=== PATIENT | male | born 1960 | race American Indian/Alaskan Native ===

== ENCOUNTER 2017-03-24 10:19 | Emergency (ER) | payer MEDICAID ==
[2017-03-24 10:19] VITALS: BMI 25.8
[2017-03-24 10:37] VITALS: BP 145/79; PULSE 84; RESP 18; TEMP 97; O2SAT 98
--- NOTE | 2017-03-24 11:00 | ED PDOC ---
HPI: General Adult Time Seen by Provider: 03/24/17 10:33 Chief Complaint (Nursing): Med Refill Chief Complaint (Provider): medication refill History Per: Patient (56 y/o male h/o Schizophrenia here with for medication refill. Patient notes increased auditory/visual hallucination yesteday preventing sleep. Patient states he has been out of medication x 2 days. Denies any SI/HI.) Past Medical History Reviewed: Historical Data, Nursing Documentation, Vital Signs Vital Signs: Last Vital Signs Temp 97 F L 03/24/17 10:34 Pulse 84 03/24/17 10:34 Resp 18 03/24/17 10:34 BP 145/79 03/24/17 10:34 Pulse Ox 98 03/24/17 11:00 - Medical History PMH: Arthritis (back surgery for arthritis), Back Problems, Schizophrenia Denies: Chronic Kidney Disease - Surgical History Surgical History: Back Surgery - Family History Family History: States: Unknown Family Hx - Immunization History Hx Tetanus Toxoid Vaccination: No Hx Influenza Vaccination: No Hx Pneumococcal Vaccination: No - Home Medications Home Medications: Ambulatory Orders Medication Instructions Recorded Tramadol Hydrochloride [Tramadol] 50 mg PO TID PRN 02/24/15 Oxycodone HCl/Acetaminophen 1 tab PO Q6 PRN #10 tab 04/24/15 [Percocet 325 mg-5 mg] oxyCODONE/Acetaminophen [Percocet 1 ea PO Q6 PRN #15 tab 04/27/15 5/325 mg Tab] oxyCODONE/Acetaminophen [Percocet 1 ea PO BID PRN #8 tab 05/03/15 5/325 mg Tab] Mupirocin 2% Ointment [Bactroban 22 applic EXT BID 14 Days 05/16/15 Ointment] Aripiprazole [Abilify] 15 mg PO DAILY #7 tab 10/30/15 DiphenhydrAMINE [Benadryl] 25 - 50 mg PO HS PRN #30 cap 10/30/15 Quetiapine Fumarate [Seroquel] 400 mg PO DAILY #7 tab 10/30/15 Quetiapine Fumarate [Seroquel] 400 mg PO DAILY #14 tablet 03/24/17 - Allergies Allergies/Adverse Reactions: Allergies Allergy/AdvReac Type Severity Reaction Status Date / Time No Known Allergies Allergy Verified 05/27/15 10:16 Review of Systems ROS Statement: Except As Marked, All Systems Reviewed And Found Negative Physical Exam - Reviewed Nursing Documentation Reviewed: Yes Vital Signs Reviewed: Yes - Physical Exam Appears: Positive for: Well, Non-toxic, No Acute Distress Head Exam: Positive for: ATRAUMATIC, NORMAL INSPECTION, NORMOCEPHALIC Skin: Positive for: Normal Color, Warm, DRY Eye Exam: Positive for: EOMI, Normal appearance, PERRL ENT: Positive for: Normal ENT Inspection Neck: Positive for: Normal, Painless ROM Cardiovascular/Chest: Positive for: Regular Rate, Rhythm Respiratory: Positive for: CNT, Normal Breath Sounds Gastrointestinal/Abdominal: Positive for: Normal Exam, Bowel Sounds, Soft Back: Positive for: Normal Inspection Extremity: Positive for: Normal ROM Neurologic/Psych: Positive for: Alert, Oriented - ECG O2 Sat by Pulse Oximetry: 98 - Progress ED Course And Treament: Seen by Crisis. Cleared for d/c home by Dr. Reyes. Diagnosis Schizophrenia Disposition - Clinical Impression Clinical Impression: Schizophrenia - Patient ED Disposition Is Patient to be Admitted: No - Disposition Disposition Time: 13:13 Condition: FAIR Prescriptions: Quetiapine Fumarate [Seroquel] 400 mg PO DAILY #14 tablet Instructions: Schizophrenia (ED)
== END 2017-03-24 13:45 | disposition home or self-care (01) ==
LOC: H.ER 10:19
DX: Z76.0 Encounter for issue of repeat prescription (principal); F20.9 Schizophrenia, unspecified

== ENCOUNTER 2017-04-11 12:11 | Emergency (ER) | payer MEDICAID ==
[2017-04-11 12:11] VITALS: BMI 25.8
[2017-04-11 12:19] VITALS: BP 168/84; PULSE 96; RESP 21; TEMP 97; O2SAT 99
--- NOTE | 2017-04-11 12:39 | ED PDOC ---
HPI: General Adult Time Seen by Provider: 04/11/17 12:37 Chief Complaint (Nursing): Med Refill Chief Complaint (Provider): med refill History Per: Patient History/Exam Limitations: no limitations Additional Complaint(s): 57yo M in ED for refill of seroqule 400mg states he ran out 304 days ago and without c/o hallucinations depression SI. states his pyschriast is on vacation and appt was made for the of this month. Past Medical History Reviewed: Historical Data, Nursing Documentation, Vital Signs Vital Signs: Last Vital Signs Temp 97.0 F L 04/11/17 12:17 Pulse 96 H 04/11/17 12:17 Resp 21 04/11/17 12:17 BP 168/84 H 04/11/17 12:17 Pulse Ox 99 04/11/17 12:17 - Medical History PMH: Arthritis (back surgery for arthritis), Back Problems, Schizophrenia Denies: Diabetes, Hepatitis, HIV, HTN, Chronic Kidney Disease, Seizures, Sexually Transmitted Disease - Surgical History Surgical History: Back Surgery - Family History Family History: States: Unknown Family Hx - Immunization History Hx Tetanus Toxoid Vaccination: No Hx Influenza Vaccination: No Hx Pneumococcal Vaccination: No - Home Medications Home Medications: Ambulatory Orders Medication Instructions Recorded Quetiapine Fumarate [Seroquel] 1 tab PO HS 04/11/17 Quetiapine Fumarate [Seroquel] 400 mg PO HS #7 tablet 04/11/17 - Allergies Allergies/Adverse Reactions: Allergies Allergy/AdvReac Type Severity Reaction Status Date / Time No Known Allergies Allergy Verified 04/26/15 10:16 Review of Systems ROS Statement: Except As Marked, All Systems Reviewed And Found Negative Psych: Negative for: Psychosis, Suicidal ideation Physical Exam - Reviewed Nursing Documentation Reviewed: Yes Vital Signs Reviewed: Yes - Physical Exam Appears: Positive for: Well, Non-toxic, No Acute Distress Head Exam: Positive for: ATRAUMATIC, NORMAL INSPECTION, NORMOCEPHALIC Eye Exam: Positive for: EOMI, Normal appearance, PERRL Cardiovascular/Chest: Positive for: Regular Rate, Rhythm Respiratory: Positive for: CNT, Normal Breath Sounds Neurologic/Psych: Positive for: Alert, Oriented, Mood/Affect (stable affect) - ECG O2 Sat by Pulse Oximetry: 99 Medical Decision Making Medical Decision Making: pt will be Rx seroqeul for 14 days until able to see psychiatristpt stale until the 17 of this month. pt stable for d/c and at this time does not require crisis eval. pt given [facility] outpt information if in the future requires Rx refill for mental health medication. Disposition - Clinical Impression Clinical Impression: Prescription refill - Patient ED Disposition Is Patient to be Admitted: No Counseled Patient/Family Regarding: Need For Followup, Rx Given - Disposition Disposition: Routine/Home Disposition Time: 12:41 Condition: STABLE Prescriptions: Quetiapine Fumarate [Seroquel] 400 mg PO HS #7 tablet Instructions: Schizophrenia (ED)
== END 2017-04-11 13:00 | disposition home or self-care (01) ==
LOC: H.ER 12:11
DX: Z76.0 Encounter for issue of repeat prescription (principal); F20.9 Schizophrenia, unspecified

== ENCOUNTER 2017-08-26 08:55 | Observation (INO) | payer MEDICAID ==
[2017-08-26 08:59] VITALS: BP 158/83; PULSE 84; RESP 20; TEMP 97.9; O2SAT 98
[2017-08-26 09:00] VITALS: BMI 27.4
[2017-08-26] MEDS ORDERED: Sodium Chloride 0.9% 1,000 ML IV STA ×2 (09:50→11:10)
--- NOTE | 2017-08-26 10:25 | ED PDOC ---
Hyperglycemia/Hypoglycemia Time Seen by Provider: 08/26/17 09:21 Chief Complaint (Nursing): Dizziness/Lightheaded Chief Complaint (Provider): Hyperglycemia History Per: Patient History/Exam Limitations: no limitations Onset/Duration Of Symptoms: Unknown : The patient does not have any of the infectious symptoms listed except for those marked. Additional Complaint(s): Hayden is a 57 y/o male who was brought to the ED for hyperglycemia during his evaluation for schizophrenia which started yesterday. While being evaluated for schizophrenia it was found that his glucose was 326. He denies any medical complaints, including chest pain, dizziness, shortness of breath, polydipsia, or polyuria. PMD: None Provided Past Medical History Reviewed: Historical Data, Nursing Documentation, Vital Signs Vital Signs: Last Vital Signs Temp 97.9 F 08/26/17 08:59 Pulse 84 08/26/17 08:59 Resp 20 08/26/17 08:59 BP 158/83 H 08/26/17 08:59 Pulse Ox 98 08/26/17 09:05 - Medical History PMH: Arthritis (back surgery for arthritis), Back Problems, Schizophrenia Denies: Diabetes, Hepatitis, HIV, HTN, Chronic Kidney Disease, Seizures, Sexually Transmitted Disease - Surgical History Surgical History: Back Surgery - Family History Family History: States: Unknown Family Hx, Diabetes - Social History Alcohol: Social - Immunization History Hx Tetanus Toxoid Vaccination: No Hx Influenza Vaccination: No Hx Pneumococcal Vaccination: No - Home Medications Home Medications: Ambulatory Orders Medication Instructions Recorded Quetiapine Fumarate [Seroquel] 1 tab PO HS 04/11/17 Quetiapine Fumarate [Seroquel] 400 mg PO HS #7 tablet 04/11/17 - Allergies Allergies/Adverse Reactions: Allergies Allergy/AdvReac Type Severity Reaction Status Date / Time No Known Allergies Allergy Verified 04/26/15 10:16 Review of Systems ROS Statement: Except As Marked, All Systems Reviewed And Found Negative Constitutional: Negative for: Other (polydipsia) Cardiovascular: Negative for: Chest Pain Respiratory: Negative for: Shortness of Breath Genitourinary Male: Negative for: Frequency Neurological: Negative for: Dizziness Physical Exam - Reviewed Nursing Documentation Reviewed: Yes Vital Signs Reviewed: Yes - Physical Exam Appears: Positive for: Well, Non-toxic, No Acute Distress Head Exam: Positive for: ATRAUMATIC, NORMAL INSPECTION, NORMOCEPHALIC Skin: Positive for: Normal Color, Warm, DRY Eye Exam: Positive for: EOMI, Normal appearance, PERRL ENT: Positive for: Normal ENT Inspection Neck: Positive for: Normal, Painless ROM, Supple Cardiovascular/Chest: Positive for: Regular Rate, Rhythm Respiratory: Positive for: CNT, Normal Breath Sounds Gastrointestinal/Abdominal: Positive for: Normal Exam, Bowel Sounds, Soft. Negative for: Tenderness Back: Positive for: Normal Inspection Extremity: Positive for: Normal ROM Neurologic/Psych: Positive for: Alert, Oriented - Laboratory Results Result Diagrams: 08/26/17 10:27 - ECG O2 Sat by Pulse Oximetry: 98 (RA) Pulse Ox Interpretation: Normal Medical Decision Making Medical Decision Making: Initial Impression: hyperglycemia Initial Plan --VBG Shock Panel --EKG --CMP --Troponin I --Urine dipstick --CBC --Normal IV --Blood Glucose --Urinalysis --reevaluation Scribe Attestation: Documented by Derrick Hamm, acting as a scribe for Dulce Maria Rouse. Provider Scribe Attestation: All medical record entries made by the Scribe were at my direction and personally dictated by me. I have reviewed the chart and agree that the record accurately reflects my personal performance of the history, physical exam, medical decision making, and the department course for this patient. I have also personally directed, reviewed, and agree with the discharge instructions and disposition. Disposition - Disposition Forms: [employer] (Bengali)
[2017-08-26 10:27] LABS: RBC URINE 3 /hpf (0-3); URINE BILIRUBIN NEGATIVE (NEGATIVE); URINE BLOOD NEGATIVE (NEGATIVE); URINE COLOR YELLOW (YELLOW); URINE GLUCOSE (UA) >=500 mg/dL (Normal); URINE KETONE NEGATIVE (NEGATIVE); URINE LEUKOCYTE ESTERASE NEG Leu/uL (Negative); URINE PROTEIN NEGATIVE (NEGATIVE); URINE UROBILINOGEN 0.2-1.0 mg/dL (0.2-1.0); WBC URINE < 1 /hpf (0-5)
[2017-08-26 10:33] LABS: BASO # 0.1 K/uL (0.0-0.2); BASO % 1.6 % (0.0-2.0); EOS # 0.1 K/uL (0.0-0.7); EOS % 1.3 % (0.0-4.0); HEMATOCRIT 38.5 % (35.0-51.0); LYMPH % 41.2 % (20.0-40.0); MEAN CELL VOLUME 82.1 fl (80.0-94.0); MEAN CORPUSCULAR HGB CONC 32.9 g/dL (33.0-37.0); MEAN PLATELET VOLUME 8.8 fl (7.2-11.7); MONO # 0.3 K/uL (0.0-0.8); MONO % 6.8 % (0.0-10.0); NEUT # 2.4 K/uL (1.8-7.0); NEUT % 49.1 % (50.0-75.0); NRBC % 0.2 % (0.0-0.0); RED CELL DISTRIBUTION WIDTH 13.7 % (11.5-14.5); WHITE BLOOD COUNT 4.9 K/uL (4.8-10.8)
[2017-08-26 10:39] LABS: VENOUS BLOOD GAS BASE EXCESS 1.3 mmol/L (0.0-2.0); VENOUS BLOOD GAS PCO2 47 mmHg (40-60); VENOUS BLOOD PH 7.37 (7.32-7.43)
[2017-08-26 10:45] LABS: ALB/GLOB RATIO 1.3 (1.0-2.1); ALKALINE PHOSPHATASE 124 U/L (38-126); ALT/SGPT 34 U/L (21-72); AST/SGOT 39 U/L (17-59); BILIRUBIN,TOTAL 0.6 mg/dl (0.2-1.3); BLOOD UREA NITROGEN 9 mg/dl (9-20); CALCIUM 9.5 mg/dL (8.4-10.2); CARBON DIOXIDE 22 mmol/L (22-30); CHLORIDE 102 mmol/L (98-107); GFR AFRICAN-AMERICAN > 60; GLUCOSE,RANDOM 330 mg/dL (75-110); SODIUM 139 mmol/l (132-148); TOTAL PROTEIN 7.6 G/DL (6.3-8.2)
[2017-08-26 11:08] LABS: POTASSIUM 4.6 MMOL/L (3.6-5.0)
--- NOTE | 2017-08-27 10:55 | CARD ---
APPROVED REPORT EKG Measurement Heart [id number] <Conclusion> Normal sinus rhythm Normal ECG
== END 2017-08-26 14:08 | disposition home or self-care (01) ==
LOC: H.ER 08:55 → H.EROBSV 10:00
PROVIDERS: ADMIT Emergency Medicine; ATTEND Emergency Medicine
DX: R73.9 Hyperglycemia, unspecified (principal); F20.9 Schizophrenia, unspecified; M19.90 Unspecified osteoarthritis, unspecified site; Z79.899 Other long term (current) drug therapy
CPT/HCPCS: 80053; 81003; 82803; 82948; 84484; 85025; 93005; 99283; G0378; J7040

== ENCOUNTER 2018-02-25 10:06 | Observation (INO) | payer MEDICAID ==
[2018-02-25 10:07] VITALS: BMI 27.4
[2018-02-25] MEDS ORDERED: Sodium Chloride 0.9% 1,000 ML IV STA (10:43)
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
[2018-02-25 11:11] LABS: BASO # 0.1 K/uL (0.0-0.2); BASO % 1.2 % (0.0-2.0); EOS # 0.1 K/uL (0.0-0.7); EOS % 1.3 % (0.0-4.0); HEMOGLOBIN 14.6 g/dL (12.0-18.0); LYMPH % 36.5 % (20.0-40.0); MEAN CELL VOLUME 82.7 fl (80.0-94.0); MEAN CORPUSCULAR HEMOGLOBIN 27.4 pg (27.0-31.0); MEAN CORPUSCULAR HGB CONC 33.2 g/dL (33.0-37.0); MEAN PLATELET VOLUME 8.6 fl (7.2-11.7); MONO # 0.8 K/uL (0.0-0.8); MONO % 10.2 % (0.0-10.0); NEUT # 4.2 K/uL (1.8-7.0); NEUT % 50.8 % (50.0-75.0); NRBC % 0.1 % (0.0-0.0); RBC 5.34 Mil/uL (4.40-5.90); RED CELL DISTRIBUTION WIDTH 15.7 % (11.5-14.5); WHITE BLOOD COUNT 8.2 K/uL (4.8-10.8)
[2018-02-25 11:18] LABS: VENOUS BLOOD GAS BASE EXCESS 0.3 mmol/L (0.0-2.0); VENOUS BLOOD GAS PCO2 38 mmHg (40-60); VENOUS BLOOD GAS PO2 47 mm/Hg (30-55); VENOUS BLOOD PH 7.42 (7.32-7.43)
[2018-02-25 11:23] LABS: URINE BILIRUBIN NEGATIVE (NEGATIVE); URINE BLOOD SMALL (NEGATIVE); URINE CLARITY SLIGHTY-CLOUDY (Clear); URINE COLOR YELLOW (YELLOW); URINE GLUCOSE (UA) NEG (Normal); URINE LEUKOCYTE ESTERASE NEG Leu/uL (Negative); URINE PROTEIN 100 mg/dL (NEGATIVE); URINE UROBILINOGEN 0.2-1.0 mg/dL (0.2-1.0)
[2018-02-25 11:24] LABS: BLOOD UREA NITROGEN 20 mg/dl (9-20); GFR AFRICAN-AMERICAN > 60; GFR NON-AFRICAN AMERICAN 52
[2018-02-25 11:25] LABS: ALBUMIN 4.5 g/dL (3.5-5.0); ALT/SGPT 35 U/L (21-72); AST/SGOT 27 U/L (17-59); CALCIUM 9.9 mg/dL (8.4-10.2); LIPASE 78 U/L (23-300)
--- NOTE | 2018-02-25 11:43 | RAD ---
PROCEDURE: CHEST RADIOGRAPH, 1 VIEW HISTORY: vomiting COMPARISON: 02/23/2012 FINDINGS: LUNGS: Clear. PLEURA: No pneumothorax or pleural fluid seen. CARDIOVASCULAR: Normal. OSSEOUS STRUCTURES: No significant abnormalities. VISUALIZED UPPER ABDOMEN: Normal. OTHER FINDINGS: None. IMPRESSION: No active disease.
--- NOTE | 2018-02-25 13:47 | CP.PCM.HP ---
History of Present Illness - History of Present Illness History of Present Illness: 57M with PMHx of IDDM Type 2, schizophrenia seen in ED for admission after three days of bloody emesis. Patient states that he experienced three days of bloody vomit after eating fried chicken. He states that the vomiting stopped yesterday but says that he still has stomach pain at this time. He says he has only been able to eat small amounts of chicken since the onset of his nausea and vomiting. Patient also states that he has not had a bowel movement since his vomiting began and denies any hematouria. Patient also states that he has been taking Metformin at his house but has not picked up the new prescription that was E-prescribed to him two weeks ago from the [facility]. Patient denies any further complaints at this time. Denies any recent F/C/CP/SOB /D/posterior calf pain. PMD: Dr. Garcia ([facility]) PMH: DM2, schizophrenia Meds: Metformin, Xanax, Lopid, Quetiapine ALL: NKDA PSHx: Lumbar nerve block, Ex lap FHx: Non-contributory SHx: Intermittent EtOH, cocaine use (last use three days ago), current smoker Present on Admission - Present on Admission Any Indicators Present on Admission: No Review of Systems - Review of Systems Review of Systems: ROS as per HPI - Constitutional Constitutional: As Per HPI. absent: Anorexia, Chills, Daytime Sleepiness, Excessive Sweating, Fatigue, Fever, Frequent Falls, Headache, Increased Appetite , Lethargy, Malaise, Night Sweats, Snoring, Sleep Apnea, Weight Gain, Weight Loss, Weakness, Other - Cardiovascular Cardiovascular: As Per HPI. absent: Acrocyanosis, Chest Pain, Chest Pain at Rest, Chest Pain with Activity, Claudication, Diaphoresis, Dyspnea, Dyspnea on Exertion, Edema, Irregular Heart Rhythm, Pain Radiating to Arm/Neck/Jaw, Leg Edema, Leg Ulcers, Lightheadedness, Orthopnea, Palpitations, Paroxysmal Nocturnal Dyspnea, Pedal Edema, Radiating Pain, Rapid Heart Rate, Slow Heart Rate, Syncope, Other - Respiratory Respiratory: As Per HPI. absent: Cough, Dyspnea, Hemoptysis, Dyspnea on Exertion, Wheezing, Snoring, Stridor, Pain on Inspiration, Chest Congestion, Excessive Mucous Production, Change in Mucous Color, Pain with Coughing, Other - Gastrointestinal Gastrointestinal: Abdominal Pain, Constipation, Hematemesis, Nausea, Vomiting Past Patient History - Infectious Disease Hx of Infectious Diseases: None - Past Medical History & Family History Past Medical History?: No - Past Social History Smoking Status: Current Some Days Smoker - CARDIAC Hx Hypertension: No - PULMONARY Hx Tuberculosis: No - NEUROLOGICAL Hx Seizures: No - HEENT Hx HEENT Problems: No - RENAL Hx Chronic Kidney Disease: No - ENDOCRINE/METABOLIC Hx Endocrine Disorders: No - HEMATOLOGICAL/ONCOLOGICAL Hx Human Immunodeficiency Virus (HIV): No - INTEGUMENTARY Hx Dermatological Problems: No - MUSCULOSKELETAL/RHEUMATOLOGICAL Hx Arthritis: Yes (back surgery for arthritis) - GASTROINTESTINAL Hx Gastrointestinal Disorders: No - GENITOURINARY/GYNECOLOGICAL Hx Sexually Transmitted Disorders: No - PSYCHIATRIC Hx Schizophrenia: Yes - SURGICAL HISTORY Hx Surgeries: Yes (abdominal) Other/Comment: INTESTINAL SURGERY, back surgery for arthritis - ANESTHESIA Hx Anesthesia: Yes Hx Anesthesia Reactions: No Hx Malignant Hyperthermia: No Meds Allergies/Adverse Reactions: Allergies Allergy/AdvReac Type Severity Reaction Status Date / Time No Known Allergies Allergy Verified 04/26/15 10:16 Physical Exam - Constitutional Appears: Well, Non-toxic, No Acute Distress - Head Exam Head Exam: ATRAUMATIC, NORMOCEPHALIC - Eye Exam Eye Exam: EOMI, Normal appearance, PERRL Pupil Exam: PERRL - ENT Exam ENT Exam: Mucous Membranes Moist - Respiratory Exam Respiratory Exam: Clear to Auscultation Bilateral, NORMAL BREATHING PATTERN - Cardiovascular Exam Cardiovascular Exam: REGULAR RHYTHM - GI/Abdominal Exam GI & Abdominal Exam: Guarding. absent: Distended, Firm - Rectal Exam Rectal Exam: Deferred - Extremities Exam Extremities exam: Positive for: normal inspection - Neurological Exam Neurological exam: Alert, Oriented x3 - Psychiatric Exam Psychiatric exam: Normal Affect, Normal Mood - Skin Skin Exam: Intact, Normal Color, Warm Results - Vital Signs Recent Vital Signs: Last Vital Signs Temp 97 F L 02/25/18 13:22 Pulse 76 02/25/18 13:22 Resp 19 02/25/18 13:22 BP 160/80 H 02/25/18 13:22 Pulse Ox 98 02/25/18 13:22 - Labs Result Diagrams: 02/25/18 11:00 02/25/18 11:00 Labs: Laboratory Results - last 24 hr 02/25/18 02/25/18 02/25/18 10:31 11:00 11:00 WBC 8.2 D RBC 5.34 Hgb 14.6 Hct 44.1 MCV 82.7 MCH 27.4 MCHC 33.2 RDW 15.7 H Plt Count 334 MPV 8.6 Neut % (Auto) 50.8 Lymph % (Auto) 36.5 [place] % (Auto) 10.2 H Eos % (Auto) 1.3 Baso % (Auto) 1.2 Neut # (Auto) 4.2 Lymph # (Auto) 3.0 [place] # (Auto) 0.8 Eos # (Auto) 0.1 Baso # (Auto) 0.1 pO2 VBG pH VBG pCO2 VBG HCO3 VBG Total CO2 VBG O2 Sat (Calc) VBG Base Excess VBG Potassium Glucose Lactate FiO2 Sodium 139 Potassium 4.1 Chloride 100 Carbon Dioxide 22 Anion Gap 21 H BUN 20 Creatinine 1.4 Est GFR ( Amer) > 60 Est GFR (Non-Af Amer) 52 POC Glucose (mg/dL) 129 H Random Glucose 132 H Calcium 9.9 Magnesium 2.0 Total Bilirubin 0.8 AST 27 ALT 35 Alkaline Phosphatase 104 Troponin I < 0.0120 Total Protein 8.7 H Albumin 4.5 Globulin 4.3 H Albumin/Globulin Ratio 1.0 Lipase 78 Venous Blood Potassium Urine Color Urine Clarity Urine pH Ur Specific [place] Urine Protein Urine Glucose (UA) Urine Ketones Urine Blood Urine Nitrate Urine Bilirubin Urine Urobilinogen Ur Leukocyte Esterase Urine RBC (Auto) Urine Microscopic WBC Hyaline Casts 02/25/18 02/25/18 11:00 11:02 WBC RBC Hgb Hct MCV MCH MCHC RDW Plt Count MPV Neut % (Auto) Lymph % (Auto) [place] % (Auto) Eos % (Auto) Baso % (Auto) Neut # (Auto) Lymph # (Auto) [place] # (Auto) Eos # (Auto) Baso # (Auto) pO2 47 VBG pH 7.42 VBG pCO2 38 L VBG HCO3 24.8 VBG Total CO2 25.8 VBG O2 Sat (Calc) 86.7 H VBG Base Excess 0.3 VBG Potassium 4.3 Glucose 137 H Lactate 1.4 FiO2 21.0 Sodium 135.0 Potassium Chloride 100.0 Carbon Dioxide Anion Gap BUN Creatinine Est GFR ( Amer) Est GFR (Non-Af Amer) POC Glucose (mg/dL) Random Glucose Calcium Magnesium Total Bilirubin AST ALT Alkaline Phosphatase Troponin I Total Protein Albumin Globulin Albumin/Globulin Ratio Lipase Venous Blood Potassium 4.3 Urine Color Yellow Urine Clarity Slighty-cloudy Urine pH 5.0 Ur Specific [place] 1.026 Urine Protein 100 Urine Glucose (UA) Neg Urine Ketones Trace Urine Blood Small Urine Nitrate Negative Urine Bilirubin Negative Urine Urobilinogen 0.2-1.0 Ur Leukocyte Esterase Neg Urine RBC (Auto) 6 H Urine Microscopic WBC 2 Hyaline Casts 3-5 H Assessment & Plan - Assessment and Plan (Free Text) Assessment: 57M with PMHx of DM2, schizophrenia seen in ED for admission after three days of bloody emesis Plan: Hematemesis, resolved - H/H 14.6/44.1. No evidence of anemia - F/u repeat CBC to assess H/H and treat accordingly - Protonix for epigastric pain - Zofran for nausea/vomiting - CXR: No active disease - IVF NS 1000 mL @ 100 mL/hr IDDM Type 2 - POC Glucose 129 - Insulin coverage - Hold Metformin, hold glipizide - F/u HgA1c - F/u Lipid panel - Hypoglycemic protocol Schizophrenia - Continue at home medications Elevated BP w/o diagnosis for HTN - Asymptomatic - BP 160/80 - HCTZ 25 mg PO daily - Monitor vital signs q4 Non-specific EKG changes in ED - Serial trops - F/u EKG in AM Diet - Consistent Carbohydrate DVT Prophylaxis - SCDs - Date & Time Date: 02/25/18 Time: 13:25
[2018-02-25] MEDS ORDERED: Glucagon Recombinant 1 mg Inj IM PRN (14:00)
[2018-02-25] MEDS ORDERED: Dextrose 50% SYRINGE Inj (50 ml) IV PRN (14:00)
[2018-02-25] MEDS: Sodium Chloride 0.9% 1,000 ML IV SCH (14:17)
[2018-02-25] MEDS: Insulin Regular 100 units/ml SC SCH ×2 (16:31→21:49)
[2018-02-26] MEDS: Sodium Chloride 0.9% 1,000 ML IV SCH (00:55)
[2018-02-26 05:46] LABS: LDL CHOLESTEROL 157 mg/dL (0-129)
[2018-02-26 05:53] LABS: ALB/GLOB RATIO 1.1 (1.0-2.1); ALBUMIN 4.1 g/dL (3.5-5.0); ALT/SGPT 29 U/L (21-72); AST/SGOT 23 U/L (17-59); BLOOD UREA NITROGEN 13 mg/dl (9-20); CALCIUM 9.8 mg/dL (8.4-10.2); GFR AFRICAN-AMERICAN > 60; GFR NON-AFRICAN AMERICAN > 60; HDL CHOLESTEROL 36 MG/DL (30-70)
[2018-02-26 06:11] LABS: BASO % 0.5 % (0.0-2.0); EOS # 0.2 K/uL (0.0-0.7); EOS % 2.1 % (0.0-4.0); HEMOGLOBIN 13.9 g/dL (12.0-18.0); LYMPH # 3.6 K/uL (1.0-4.3); LYMPH % 47.6 % (20.0-40.0); MEAN CELL VOLUME 83.2 fl (80.0-94.0); MEAN CORPUSCULAR HEMOGLOBIN 27.2 pg (27.0-31.0); MEAN CORPUSCULAR HGB CONC 32.7 g/dL (33.0-37.0); MEAN PLATELET VOLUME 8.6 fl (7.2-11.7); MONO # 0.8 K/uL (0.0-0.8); NEUT # 2.9 K/uL (1.8-7.0); NEUT % 38.8 % (50.0-75.0); NRBC % 0.5 % (0.0-0.0); RBC 5.09 Mil/uL (4.40-5.90); RED CELL DISTRIBUTION WIDTH 15.9 % (11.5-14.5); WHITE BLOOD COUNT 7.6 K/uL (4.8-10.8)
[2018-02-26] MEDS: Insulin Regular 100 units/ml SC SCH ×2 (07:04→12:54)
[2018-02-26 11:14] VITALS: RESP 20; O2SAT 100
--- NOTE | 2018-02-26 11:25 | CP.PCM.DIS ---
Provider - Provider Date of Admission: 02/25/18 12:22 Attending physician: Amarilis Banda MD Primary care physician: Dr. Melecio Benjamin MD Time Spent in preparation of Discharge (in minutes): 45 Diagnosis - Discharge Diagnosis (1) Vomiting Status: Resolved Comment: 57M w/ PMHx IDDM2 and schizophrenia seen in ED on 02/25 complaining of hematemesis x 3 days. Patient states that he had not experienced an episode of nausea or vomiting for 24 hours at time of examination. Patient admitted to hospital for overnight observation. Zofran and Protonix given for symptoms. Patient tolerated carbohydrate controlled diet while in house without any episodes of nausea, vomiting or increased stomach pain. Patient stable for DC home today. Will follow up with Dr. Avilez upon discharge. Encouraged to return to ED immediately if symptoms recurr Hospital Course - Lab Results Lab Results: Most Recent Lab Values WBC 7.6 K/uL (4.8-10.8) 02/26/18 04:35 RBC 5.09 Mil/uL (4.40-5.90) 02/26/18 04:35 Hgb 13.9 g/dL (12.0-18.0) 02/26/18 04:35 Hct 42.4 % (35.0-51.0) 02/26/18 04:35 MCV 83.2 fl (80.0-94.0) 02/26/18 04:35 MCH 27.2 pg (27.0-31.0) 02/26/18 04:35 MCHC 32.7 g/dL (33.0-37.0) L 02/26/18 04:35 RDW 15.9 % (11.5-14.5) H 02/26/18 04:35 Plt Count 298 K/uL (130-400) 02/26/18 04:35 MPV 8.6 fl (7.2-11.7) 02/26/18 04:35 Neut % (Auto) 38.8 % (50.0-75.0) L 02/26/18 04:35 Lymph % (Auto) 47.6 % (20.0-40.0) H 02/26/18 04:35 [place] % (Auto) 11.0 % (0.0-10.0) H 02/26/18 04:35 Eos % (Auto) 2.1 % (0.0-4.0) 02/26/18 04:35 Baso % (Auto) 0.5 % (0.0-2.0) 02/26/18 04:35 Neut # (Auto) 2.9 K/uL (1.8-7.0) 02/26/18 04:35 Lymph # (Auto) 3.6 K/uL (1.0-4.3) 02/26/18 04:35 [place] # (Auto) 0.8 K/uL (0.0-0.8) 02/26/18 04:35 Eos # (Auto) 0.2 K/uL (0.0-0.7) 02/26/18 04:35 Baso # (Auto) 0.0 K/uL (0.0-0.2) 02/26/18 04:35 pO2 47 mm/Hg (30-55) 02/25/18 11:02 VBG pH 7.42 (7.32-7.43) 02/25/18 11:02 VBG pCO2 38 mmHg (40-60) L 02/25/18 11:02 VBG HCO3 24.8 mmol/L 02/25/18 11:02 VBG Total CO2 25.8 mmol/L (22-28) 02/25/18 11:02 VBG O2 Sat (Calc) 86.7 % (40-65) H 02/25/18 11:02 VBG Base Excess 0.3 mmol/L (0.0-2.0) 02/25/18 11:02 VBG Potassium 4.3 mmol/L (3.6-5.2) 02/25/18 11:02 Sodium 135.0 mmol/L (132-148) 02/25/18 11:02 Chloride 100.0 mmol/L (98-107) 02/25/18 11:02 Glucose 137 mg/dL (75-110) H 02/25/18 11:02 Lactate 1.4 mmol/L (0.7-2.1) 02/25/18 11:02 FiO2 21.0 % 02/25/18 11:02 Sodium 139 mmol/l (132-148) 02/26/18 04:35 Potassium 3.7 MMOL/L (3.6-5.0) 02/26/18 04:35 Chloride 103 mmol/L (98-107) 02/26/18 04:35 Carbon Dioxide 23 mmol/L (22-30) 02/26/18 04:35 Anion Gap 17 (10-20) 02/26/18 04:35 BUN 13 mg/dl (9-20) 02/26/18 04:35 Creatinine 1.0 mg/dl (0.8-1.5) 02/26/18 04:35 Est GFR ( Amer) > 60 02/26/18 04:35 Est GFR (Non-Af Amer) > 60 02/26/18 04:35 POC Glucose (mg/dL) 106 mg/dL (65-110) 02/26/18 06:51 Random Glucose 108 mg/dL (75-110) 02/26/18 04:35 Calcium 9.8 mg/dL (8.4-10.2) 02/26/18 04:35 Magnesium 2.0 MG/DL (1.6-2.3) 02/25/18 11:00 Total Bilirubin 0.6 mg/dl (0.2-1.3) 02/26/18 04:35 AST 23 U/L (17-59) 02/26/18 04:35 ALT 29 U/L (21-72) 02/26/18 04:35 Alkaline Phosphatase 83 U/L (38-126) 02/26/18 04:35 Troponin I < 0.0120 ng/mL (0.00-0.120) 02/26/18 04:35 Total Protein 7.9 G/DL (6.3-8.2) 02/26/18 04:35 Albumin 4.1 g/dL (3.5-5.0) 02/26/18 04:35 Globulin 3.8 gm/dL (2.2-3.9) 02/26/18 04:35 Albumin/Globulin Ratio 1.1 (1.0-2.1) 02/26/18 04:35 Triglycerides 200 mg/DL (0-149) H 02/26/18 04:35 Cholesterol 221 mg/dL (0-199) H 02/26/18 04:35 LDL Cholesterol Direct 157 mg/dL (0-129) H 02/26/18 04:35 HDL Cholesterol 36 MG/DL (30-70) 02/26/18 04:35 Lipase 78 U/L (23-300) 02/25/18 11:00 Venous Blood Potassium 4.3 mmol/L (3.6-5.2) 02/25/18 11:02 Urine Color Yellow (YELLOW) 02/25/18 11:00 Urine Clarity Slighty-cloudy (Clear) 02/25/18 11:00 Urine pH 5.0 (5.0-8.0) 02/25/18 11:00 Ur Specific [place] 1.026 (1.003-1.030) 02/25/18 11:00 Urine Protein 100 mg/dL (NEGATIVE) 02/25/18 11:00 Urine Glucose (UA) Neg mg/dL (Normal) 02/25/18 11:00 Urine Ketones Trace mg/dL (NEGATIVE) 02/25/18 11:00 Urine Blood Small (NEGATIVE) 02/25/18 11:00 Urine Nitrate Negative (NEGATIVE) 02/25/18 11:00 Urine Bilirubin Negative (NEGATIVE) 02/25/18 11:00 Urine Urobilinogen 0.2-1.0 mg/dL (0.2-1.0) 02/25/18 11:00 Ur Leukocyte Esterase Neg Ale/uL (Negative) 02/25/18 11:00 Urine RBC (Auto) 6 /hpf (0-3) H 02/25/18 11:00 Urine Microscopic WBC 2 /hpf (0-5) 02/25/18 11:00 Hyaline Casts 3-5 /hpf (0-2) H 02/25/18 11:00 - Hospital Course Hospital Course: 57M w/ PMHx IDDM2 and schizophrenia seen in ED on 02/25 complaining of hematemesis x 3 days. Patient states that he had not experienced an episode of nausea or vomiting for 24 hours at time of examination. Patient admitted to hospital for overnight observation. Zofran and Protonix given for symptoms. Patient tolerated carbohydrate controlled diet while in house without any episodes of nausea, vomiting or increased stomach pain. Increased BP at ED examination controlled with HCTZ. IDDM2 controlled with insulin control. Schizophrenia managed per patient home meds, Xanax and Seroquel. Patient encouraged to continue all at home meds including Lopid. Patient stable for DC home today. F/u repeat EKG as outpatient Appointment scheduled with [facility] for 03/05/[address] Avilez for 03/09/18 Referral placed in chart Encouraged to return to ED immediately if symptoms recur - Date & Time of H&P Date of H&P: 02/26/18 Time of H&P: 11:30 Discharge Exam - Head Exam Head Exam: ATRAUMATIC, NORMOCEPHALIC - Eye Exam Eye Exam: EOMI, PERRL Pupil Exam: PERRL - ENT Exam ENT Exam: Mucous Membranes Moist - Respiratory Exam Respiratory Exam: NORMAL BREATHING PATTERN, UNREMARKABLE - GI/Abdominal Exam GI & Abdominal Exam: absent: Diminished Bowel Sounds, Distended, Firm, Guarding , Tenderness - Rectal Exam Rectal Exam: Deferred - Extremities Exam Extremities exam: normal capillary refill, normal inspection - Neurological Exam Neurological exam: Alert, Oriented x3 - Psychiatric Exam Psychiatric exam: Normal Affect, Normal Mood - Skin Skin Exam: Intact, Normal Color, Warm Discharge Plan - Follow Up Plan Condition: FAIR Disposition: HOME/ ROUTINE Instructions: Nausea and Vomiting, Adult (DC) Referrals: Patricia Avilez MD [Medical Doctor] - 03/09/18 1:20 pm Candelario Sahu MD [Resident] - 03/05/18 11:00 am
[2018-02-26 15:44] VITALS: BP 127/82; PULSE 95; TEMP 98.5
--- NOTE | 2018-02-26 18:24 | CARD ---
APPROVED REPORT EKG Measurement Heart [id number] <Conclusion> Normal sinus rhythm Nonspecific T wave abnormality Abnormal ECG
== END 2018-02-26 13:28 | disposition home or self-care (01) ==
LOC: H.ER 10:06 → H.ERHOLD 12:22 → H.TEL 14:58
PROVIDERS: ADMIT Family Medicine Geriatric Medicine; ATTEND Family Medicine Geriatric Medicine
DX: K92.0 Hematemesis (principal); R10.13 Epigastric pain; E11.9 Type 2 diabetes mellitus without complications; F20.9 Schizophrenia, unspecified; F14.90 Cocaine use, unspecified, uncomplicated; F17.200 Nicotine dependence, unspecified, uncomplicated; Z79.4 Long term (current) use of insulin; Z79.84 Long term (current) use of oral hypoglycemic drugs
CPT/HCPCS: 36415; 71045; 80053; 80061; 81003; 82803; 82948; 83036; 83690; 83735; 84484; 85025; 87086; 93005; 96374; 99285; C9113; G0378; J7040

== ENCOUNTER 2018-06-16 11:32 | Inpatient (IN) | payer MEDICAID ==
[2018-06-16 11:32] VITALS: BMI 27.4
--- NOTE | 2018-06-16 13:22 | ED PDOC ---
HPI: Abdomen Time Seen by Provider: 06/16/18 13:08 Chief Complaint (Nursing): GI Problem Chief Complaint (Provider): Rectal pain History Per: Patient History/Exam Limitations: no limitations Onset/Duration Of Symptoms: Days (x4) Current Symptoms Are (Timing): Still Present Additional Complaint(s): 58 y/o male presents to the ED complaining of rectal pain that began 4 days ago. Pain is described as constant, and worsening since onset. He reports the pain does not worsen with bowel movements, and is exacerbated by sitting. Otherwise patient denies any vomiting, diarrhea, constipation, abdominal pain, fever, dysuria, or blood in the stool/urine. Denies prior history of hemorrhoids. He admits to increased urinary frequency but no changes in the stream. Pt denies any recent history of unprotected sex, no concern for STI, no rectal intercourse at anytime. Past Medical History Reviewed: Historical Data, Nursing Documentation, Vital Signs Vital Signs: Last Vital Signs Temp 98.3 F 06/16/18 17:07 Pulse 83 06/16/18 17:07 Resp 18 06/16/18 17:07 BP 131/67 06/16/18 17:07 Pulse Ox 96 06/16/18 17:08 - Medical History PMH: Arthritis (back surgery for arthritis), Back Problems, Diabetes, Schizophrenia Denies: Hepatitis, HIV, HTN, Chronic Kidney Disease, Seizures, Sexually Transmitted Disease - Surgical History Surgical History: Back Surgery - Family History Family History: States: Diabetes - Immunization History Hx Tetanus Toxoid Vaccination: No Hx Influenza Vaccination: No Hx Pneumococcal Vaccination: No - Home Medications Home Medications: Ambulatory Orders Medication Instructions Recorded Alprazolam [Xanax] 2 mg PO Q6 PRN 02/25/18 Gemfibrozil [Lopid] 600 mg PO Q12 02/25/18 MetFORMIN [glucoPHAGE] 1,000 mg PO BID 02/25/18 Quetiapine Fumarate [Quetiapine 400 mg PO HS 06/16/18 Fumarate ER] - Allergies Allergies/Adverse Reactions: Allergies Allergy/AdvReac Type Severity Reaction Status Date / Time No Known Allergies Allergy Verified 04/26/15 10:16 Review of Systems ROS Statement: Except As Marked, All Systems Reviewed And Found Negative Constitutional: Negative for: Fever Gastrointestinal: Positive for: Rectal Pain. Negative for: Nausea, Vomiting, Abdominal Pain, Diarrhea, Constipation, Hematochezia Genitourinary Male: Positive for: Frequency. Negative for: Dysuria, Incontinence, Hematuria Physical Exam - Reviewed Nursing Documentation Reviewed: Yes Vital Signs Reviewed: Yes - Physical Exam Appears: Positive for: Non-toxic, No Acute Distress Head Exam: Positive for: ATRAUMATIC, NORMOCEPHALIC Skin: Positive for: Normal Color, Warm, Dry Eye Exam: Positive for: Normal appearance, EOMI, PERRL Neck: Positive for: Normal, Painless ROM Cardiovascular/Chest: Positive for: Regular Rate, Rhythm. Negative for: Murmur Respiratory: Positive for: Normal Breath Sounds. Negative for: Accessory Muscle Use, Respiratory Distress Rectal: Positive for: Tenderness. Negative for: Blood Streaked Stool, Hemorrhoids Extremity: Positive for: Normal ROM. Negative for: Pedal Edema, Deformity Neurologic/Psych: Positive for: Alert, Oriented - Laboratory Results Result Diagrams: 06/16/18 13:40 06/16/18 13:40 - ECG O2 Sat by Pulse Oximetry: 96 (RA) Pulse Ox Interpretation: Normal Medical Decision Making Medical Decision Making: Initial Impression: Rectal pain Time: 13:13 Initial Plan: * CMP * CBC * UA * Blood culture * Toradol 30 mg IVP * CT A/P with IV contrast Labs reviewed, WBC elevated 19.8k with [address] results: Accession No. : [id number] Patient Name / ID : AMADA NICOLE / [id number] Exam Date : 06/16/2018 15:12:03 ( Approved ) Study Comment : Sex / Age : M / 58Y Creator : Anupam Pedraza MD Dictator : Anupam Pedraza MD Lithographing Machine Operator : Belt Maker Helper : Anupam Pedraza MD Approver2 : Report Date : 06/16/2018 15:43:37 My Comment : Date of service: 06/16/2018 PROCEDURE: CT Abdomen and Pelvis with contrast HISTORY: PROSTATITIS, POSS. ASBSCESS COMPARISON: None. TECHNIQUE: Contrast dose: 95 cc Omnipaque 300 Radiation dose: Total exam DLP = 546.04 mGy-cm. This CT exam was performed using one or more of the following dose reduction techniques: Automated exposure control, adjustment of the mA and/or kV according to patient size, and/or use of iterative reconstruction technique. FINDINGS: LOWER THORAX: Unremarkable. LIVER: Unremarkable. No gross lesion or ductal dilatation. GALLBLADDER AND BILE DUCTS: Unremarkable. PANCREAS: Unremarkable. No gross lesion or ductal dilatation. SPLEEN: Unremarkable. ADRENALS: Unremarkable. No mass. KIDNEYS AND URETERS: Unremarkable. No hydronephrosis. No solid mass. VASCULATURE: Unremarkable. No aortic aneurysm. BOWEL: No abnormal bowel loops. There is a perianal abscess extending in a circumferential fashion posteriorly about the anus. This collection measures approximately 2.3 x 3.3 x 1.5 cm on the lateral aspect of the anus bilaterally but connects posteriorly in a semi circular fashion. This may represent a drainable collection. There is some infiltration of the fat in the ischiorectal fossa bilaterally. APPENDIX: Not identified PERITONEUM: No ascites. Mild presacral fluid/ edema possibly related to the perianal abscess. LYMPH NODES: Unremarkable. No enlarged lymph nodes. BLADDER: Bladder suboptimally distended. The bladder wall is circumferentially thickened. This is nevertheless of some suspicion for cystitis and correlation with urinalysis is advised. REPRODUCTIVE: Unremarkable prostate BONES: No fracture. Osteoarthritis of the hip bilaterally, left greater than right. OTHER FINDINGS: None. IMPRESSION: Perianal abscess. Possible drainable collection. Possible cystitis. See above. Correlate with urinalysis. Additional minor findings as above. 17:07 -Spoke with president celebrity acquistion. Admission advised under medical service and will admit on consult. Scribe Attestation: Documented by Zara Lomax, acting as a scribe for Xiomara Mahmood PA-C. Provider Scribe Attestation: All medical record entries made by the Scribe were at my direction and personally dictated by me. I have reviewed the chart and agree that the record accurately reflects my personal performance of the history, physical exam, medical decision making, and the department course for this patient. I have also personally directed, reviewed, and agree with the discharge instructions and disposition. Disposition - Clinical Impression Clinical Impression: Sue-rectal abscess - Patient ED Disposition Is Patient to be Admitted: Yes - Disposition Disposition Time: 17:49 Condition: STABLE - POA Present On Arrival: None
[2018-06-16 14:01] LABS: BASO # 0.1 K/uL (0.0-0.2); BASO % 0.4 % (0.0-2.0); EOS % 0.2 % (0.0-4.0); HEMOGLOBIN 10.7 g/dL (12.0-18.0); LYMPH # 1.9 K/uL (1.0-4.3); LYMPH % 9.6 % (20.0-40.0); MEAN CELL VOLUME 83.7 fl (80.0-94.0); MEAN CORPUSCULAR HGB CONC 32.2 g/dL (33.0-37.0); MEAN PLATELET VOLUME 8.2 fl (7.2-11.7); MONO # 1.8 K/uL (0.0-0.8); MONO % 9.2 % (0.0-10.0); NEUT % 80.6 % (50.0-75.0); NRBC % 0.1 % (0.0-0.0); PLATELET COUNT 362 K/uL (130-400); RBC 3.95 Mil/uL (4.40-5.90); RED CELL DISTRIBUTION WIDTH 13.9 % (11.5-14.5); WHITE BLOOD COUNT 19.8 K/uL (4.8-10.8)
[2018-06-16 14:26] LABS: BANDS 1 % (0-2); BASOPHIL 1 % (0-2); LYMPHOCYTE 17 % (20-50); MONOCYTE 7 % (0-10); NEUTROPHIL 72 % (42-75); REACTIVE LYMPHOCYTES 2 % (0-0); TOTAL CELLS COUNTED 100
[2018-06-16 14:27] LABS: ALB/GLOB RATIO 1.1 (1.0-2.1); ALT/SGPT 26 U/L (21-72); AST/SGOT 27 U/L (17-59); BLOOD UREA NITROGEN 17 mg/dl (9-20); CALCIUM 9.2 mg/dL (8.4-10.2); GFR AFRICAN-AMERICAN > 60; GFR NON-AFRICAN AMERICAN > 60; HYPERSEGMENTATION PRESENT; HYPOCHROMIC SLIGHT; PLATELET ESTIMATE NORMAL (NORMAL)
[2018-06-16 14:37] LABS: SQUAMOUS EPITHIAL < 1 /hpf (0-5); URINE BACTERIA RARE (<OCC); URINE BILIRUBIN NEGATIVE (NEGATIVE); URINE BLOOD SMALL (NEGATIVE); URINE CLARITY SLIGHTY-CLOUDY (Clear); URINE COLOR YELLOW (YELLOW); URINE GLUCOSE (UA) 50 mg/dL (Normal); URINE HYALINE CAST 0-2 /hpf (0-2); URINE LEUKOCYTE ESTERASE NEG Leu/uL (Negative); URINE PROTEIN 100 mg/dL (NEGATIVE)
[2018-06-16] MEDS ORDERED: Iohexol 300 100 ML IJ ONE (14:57)
[2018-06-16] MEDS ORDERED: Sodium Chloride 0.9% 50 ML IV ONE (14:57)
--- NOTE | 2018-06-16 15:45 | CT ---
Date of service: 06/16/2018 PROCEDURE: CT Abdomen and Pelvis with contrast HISTORY: PROSTATITIS, POSS. ASBSCESS COMPARISON: None. TECHNIQUE: Contrast dose: 95 cc Omnipaque 300 Radiation dose: Total exam DLP = 546.04 mGy-cm. This CT exam was performed using one or more of the following dose reduction techniques: Automated exposure control, adjustment of the mA and/or kV according to patient size, and/or use of iterative reconstruction technique. FINDINGS: LOWER THORAX: Unremarkable. LIVER: Unremarkable. No gross lesion or ductal dilatation. GALLBLADDER AND BILE DUCTS: Unremarkable. PANCREAS: Unremarkable. No gross lesion or ductal dilatation. SPLEEN: Unremarkable. ADRENALS: Unremarkable. No mass. KIDNEYS AND URETERS: Unremarkable. No hydronephrosis. No solid mass. VASCULATURE: Unremarkable. No aortic aneurysm. BOWEL: No abnormal bowel loops. There is a perianal abscess extending in a circumferential fashion posteriorly about the anus. This collection measures approximately 2.3 x 3.3 x 1.5 cm on the lateral aspect of the anus bilaterally but connects posteriorly in a semi circular fashion. This may represent a drainable collection. There is some infiltration of the fat in the ischiorectal fossa bilaterally. APPENDIX: Not identified PERITONEUM: No ascites. Mild presacral fluid/ edema possibly related to the perianal abscess. LYMPH NODES: Unremarkable. No enlarged lymph nodes. BLADDER: Bladder suboptimally distended. The bladder wall is circumferentially thickened. This is nevertheless of some suspicion for cystitis and correlation with urinalysis is advised. REPRODUCTIVE: Unremarkable prostate BONES: No fracture. Osteoarthritis of the hip bilaterally, left greater than right. OTHER FINDINGS: None. IMPRESSION: Perianal abscess. Possible drainable collection. Possible cystitis. See above. Correlate with urinalysis. Additional minor findings as above.
[2018-06-16] MEDS ORDERED: Piperacillin/Tazobact 3.375 GM in Sodium Chloride 0.9% 100 ML IV STA (17:47)
--- NOTE | 2018-06-16 18:03 | CP.PCM.CON ---
History of Present Illness - History of Present Illness History of Present Illness: General Surgery - Dr. Hanson 58yo M w/ hx of DM, Schizophrenia, presenting w/ perirectal pain x4days. Pt states he noticed some discomfort in the rectal area about 4 days ago, this progressed into sharp pains, 8/10, that have become progressively worse and prompted him to come to the ED. Pt states he's never had this before. He denies any change in his bowel habits. He also denies any Fevers/Chills, Nausea /Vomiting, SOB/Chest pains, Dysuria, Hematuria, Diarrhea, Constipation, Hematochezia. PMH: DM, Schizophrenia PSH: "a surgery for arthritis" Meds: Metformin, Seroquel NKDA Social: smokes 1-2 cigarettes/day, Social ETOH Review of Systems - Review of Systems All systems: reviewed and no additional remarkable complaints except (as per HPI ) Past Patient History - Infectious Disease Hx of Infectious Diseases: None - Past Medical History & Family History Past Medical History?: No - Past Social History Smoking Status: Heavy Smoker > 10 Cigarettes Daily - CARDIAC Hx Hypertension: No - PULMONARY Hx Respiratory Disorders: No Hx Tuberculosis: No - NEUROLOGICAL Hx Seizures: No - HEENT Hx HEENT Problems: No - RENAL Hx Chronic Kidney Disease: No - ENDOCRINE/METABOLIC Hx Endocrine Disorders: Yes Hx Diabetes Mellitus Type 2: Yes - HEMATOLOGICAL/ONCOLOGICAL Hx Human Immunodeficiency Virus (HIV): No - INTEGUMENTARY Hx Dermatological Problems: No - MUSCULOSKELETAL/RHEUMATOLOGICAL Hx Arthritis: Yes (back surgery for arthritis) - GASTROINTESTINAL Hx Gastrointestinal Disorders: Yes - GENITOURINARY/GYNECOLOGICAL Hx Sexually Transmitted Disorders: No - PSYCHIATRIC Hx Schizophrenia: Yes - SURGICAL HISTORY Hx Surgeries: Yes (abdominal) Other/Comment: INTESTINAL SURGERY, back surgery for arthritis - ANESTHESIA Hx Anesthesia: Yes Hx Anesthesia Reactions: No Hx Malignant Hyperthermia: No Meds Allergies/Adverse Reactions: Allergies Allergy/AdvReac Type Severity Reaction Status Date / Time No Known Allergies Allergy Verified 04/26/15 10:16 - Medications Medications: Current Medications Vancomycin HCl 1 gm/ Sodium (Chloride) 250 mls @ 166.667 mls/hr IV STAT STA PRN Reason: Protocol Stop: 06/16/18 19:16 Piperacillin Sod/Tazobactam (Sod 3.375 gm/ Sodium Chloride) 100 mls @ 100 mls/ hr IV STAT STA PRN Reason: Protocol Stop: 06/16/18 18:46 Physical Exam - Constitutional Appears: No Acute Distress - Head Exam Head Exam: ATRAUMATIC, NORMAL INSPECTION, NORMOCEPHALIC - Eye Exam Eye Exam: Normal appearance - ENT Exam ENT Exam: Mucous Membranes Moist - Respiratory Exam Respiratory Exam: NORMAL BREATHING PATTERN. absent: Respiratory Distress - Cardiovascular Exam Cardiovascular Exam: REGULAR RHYTHM - GI/Abdominal Exam GI & Abdominal Exam: Soft. absent: Distended, Tenderness - Rectal Exam Additional comments: tender to palpation b/l with palpable induration just lateral to the rectum B/L , no visible erythema, no drainage - Neurological Exam Neurological exam: Alert, Oriented x3 - Psychiatric Exam Psychiatric exam: Normal Affect, Normal Mood - Skin Skin Exam: Dry, Intact Results - Vital Signs Recent Vital Signs: Last Vital Signs Temp 98.3 F 06/16/18 17:07 Pulse 83 06/16/18 17:07 Resp 18 06/16/18 17:07 BP 131/67 06/16/18 17:07 Pulse Ox 96 06/16/18 17:49 - Labs Result Diagrams: 06/16/18 13:40 06/16/18 13:40 Labs: Laboratory Results - last 24 hr 06/16/18 06/16/18 06/16/18 13:40 13:40 14:23 WBC 19.8 H D RBC 3.95 L Hgb 10.7 L D Hct 33.1 L MCV 83.7 MCH 27.0 MCHC 32.2 L RDW 13.9 Plt Count 362 MPV 8.2 Neut % (Auto) 80.6 H Lymph % (Auto) 9.6 L [place] % (Auto) 9.2 Eos % (Auto) 0.2 Baso % (Auto) 0.4 Neut # (Auto) 16.0 H Lymph # (Auto) 1.9 [place] # (Auto) 1.8 H Eos # (Auto) 0.0 Baso # (Auto) 0.1 Neutrophils % (Manual) 72 Band Neutrophils % 1 Lymphocytes % (Manual) 17 L Reactive Lymphs % 2 H Monocytes % (Manual) 7 Basophils % (Manual) 1 Hypersegmented Polys Present Platelet Estimate Normal Hypochromasia (manual) Slight Sodium 139 Potassium 3.8 Chloride 101 Carbon Dioxide 25 Anion Gap 17 BUN 17 Creatinine 1.1 Est GFR ( Amer) > 60 Est GFR (Non-Af Amer) > 60 Random Glucose 173 H Calcium 9.2 Total Bilirubin 1.0 AST 27 ALT 26 Alkaline Phosphatase 98 Total Protein 7.8 Albumin 4.0 Globulin 3.8 Albumin/Globulin Ratio 1.1 Urine Color Yellow Urine Clarity Slighty-cloudy Urine pH 5.0 Ur Specific [place] 1.027 Urine Protein 100 Urine Glucose (UA) 50 Urine Ketones Negative Urine Blood Small Urine Nitrate Negative Urine Bilirubin Negative Urine Urobilinogen 2.0 Ur Leukocyte Esterase Neg Urine RBC (Auto) 6 H Urine Microscopic WBC 1 Ur Squamous Epith Cells < 1 Urine Bacteria Rare Hyaline Casts 0-2 - Imaging and Cardiology CT scan - pelvis Status: Image reviewed by me, Report reviewed by me Assessment & Plan - Assessment and Plan (Free Text) Assessment: 58yo M w/ perirectal horseshoe abscess -Admit to medical service -Pain control -IV Abx -OR tomorrow for I&D of abscess -NPO after midnight DW Dr Valentin Méndez PGY4
[2018-06-16] MEDS ORDERED: Piperacillin/Tazobact 3.375 gm Inj IVPB ONE ×2 (18:07→23:35)
[2018-06-16] MEDS ORDERED: Vancomycin 1 g Inj ONE (18:07)
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
[2018-06-16] MEDS ORDERED: Dextrose 50% SYRINGE Inj (50 ml) IV PRN (20:36)
[2018-06-16] MEDS ORDERED: Glucagon Recombinant 1 mg Inj IM PRN (20:36)
[2018-06-16] MEDS ORDERED: QUETIAPINE FUMARATE 400 MG PO SCH (22:00)
[2018-06-16] MEDS: Lactated Ringer's 1,000 ML IV SCH (23:42)
[2018-06-16] MEDS: Piperacillin/Tazobact 3.375 GM in Sodium Chloride 0.9% 100 ML IVPB SCH (23:43)
[2018-06-17] MEDS: Piperacillin/Tazobact 3.375 GM in Sodium Chloride 0.9% 100 ML IVPB SCH ×4 (03:46→21:15)
[2018-06-17 06:43] LABS: BASO # 0.1 K/uL (0.0-0.2); BASO % 0.5 % (0.0-2.0); EOS # 0.1 K/uL (0.0-0.7); EOS % 0.6 % (0.0-4.0); HEMOGLOBIN 10.1 g/dL (12.0-18.0); LYMPH # 1.9 K/uL (1.0-4.3); MEAN CELL VOLUME 83.6 fl (80.0-94.0); MEAN CORPUSCULAR HEMOGLOBIN 27.2 pg (27.0-31.0); MEAN CORPUSCULAR HGB CONC 32.5 g/dL (33.0-37.0); MEAN PLATELET VOLUME 8.6 fl (7.2-11.7); MONO # 2.1 K/uL (0.0-0.8); NEUT % 77.9 % (50.0-75.0); RBC 3.71 Mil/uL (4.40-5.90); RED CELL DISTRIBUTION WIDTH 14.1 % (11.5-14.5); WHITE BLOOD COUNT 19.3 K/uL (4.8-10.8)
[2018-06-17 06:48] LABS: INR 1.3 (0.9-1.2); PARTIAL THROMBOPLASTIN TIME 30.9 Seconds (25.6-37.1); PROTHROMBIN TIME 14.8 Seconds (9.8-13.1)
[2018-06-17 07:23] LABS: ALBUMIN 3.6 g/dL (3.5-5.0); ALT/SGPT 26 U/L (21-72); AST/SGOT 26 U/L (17-59); BLOOD UREA NITROGEN 17 mg/dl (9-20); CALCIUM 8.9 mg/dL (8.4-10.2); GFR AFRICAN-AMERICAN > 60; GFR NON-AFRICAN AMERICAN > 60
--- NOTE | 2018-06-17 08:20 | CP.PCM.PN ---
Subjective - Date & Time of Evaluation Date of Evaluation: 06/17/18 Time of Evaluation: 07:50 - Subjective Subjective: Patient evaluated and examined bedside in the morning. No acute distress. Fever overnight which resolved with tylenol 325 at 4.40 am. Denies chills, headache, N /V/D/C, back pain or dysuria. NPO since midnight. Objective - Vital Signs/Intake and Output Vital Signs (last 24 hours): Temp Pulse Resp BP Pulse Ox 102.3 F H 93 H 18 130/77 97 06/17/18 03:40 06/17/18 00:08 06/17/18 00:08 06/17/18 00:08 06/17/18 00:08 - Medications Medications: Current Medications Acetaminophen (Tylenol 325mg Tab) 650 mg PO Q6 PRN PRN Reason: Fever >100.4 F Last Admin: 06/17/18 03:40 Dose: 650 mg Dextrose (Dextrose 50% Inj) 0 ml IV STAT PRN; Protocol PRN Reason: Hypoglycemia Protocol Dextrose (Glutose 15) 0 gm PO ONCE PRN; Protocol PRN Reason: Hypoglycemia Protocol Enoxaparin Sodium (Lovenox) 40 mg SC HS CHARMAINE PRN Reason: Protocol Glucagon (Glucagen Diagnostic Kit) 0 mg IM STAT PRN; Protocol PRN Reason: Hypoglycemia Protocol Home Med (Quetiapine Fumarate [Quetiapine Fumarate Er]) 400 mg PO HS CHARMAINE Piperacillin Sod/Tazobactam (Sod 3.375 gm/ Sodium Chloride) 100 mls @ 100 mls/ hr IVPB Q6 CHARMAINE PRN Reason: Protocol Last Admin: 06/17/18 03:46 Dose: 100 mls/hr Lactated Ringer's (Lactated Ringer's) 1,000 mls @ 100 mls/hr IV .Q10H [facility] Last Admin: 06/16/18 23:42 Dose: 100 mls/hr Ketorolac Tromethamine (Toradol) 30 mg IVP Q6 PRN PRN Reason: Pain, moderate (4-7) Last Admin: 06/17/18 03:41 Dose: 30 mg Metformin HCl (Glucophage) 1,000 mg PO BID [facility] Saccharomyces Boulardii (Florastor) 250 mg PO BID CHARMAINE - Labs Labs: 06/17/18 06:00 06/17/18 06:00 PT 14.8 Seconds (9.8-13.1) H 06/17/18 06:00 INR 1.3 (0.9-1.2) H 06/17/18 06:00 APTT 30.9 Seconds (25.6-37.1) 06/17/18 06:00 - Constitutional Appears: Well, Non-toxic, No Acute Distress - Head Exam Head Exam: ATRAUMATIC, NORMAL INSPECTION, NORMOCEPHALIC - Eye Exam Eye Exam: EOMI, Normal appearance, PERRL Pupil Exam: NORMAL ACCOMODATION, PERRL - ENT Exam ENT Exam: Mucous Membranes Moist, Normal Exam - Respiratory Exam Respiratory Exam: Clear to Ausculation Bilateral, NORMAL BREATHING PATTERN - Cardiovascular Exam Cardiovascular Exam: REGULAR RHYTHM, +S1, +S2. absent: Murmur - GI/Abdominal Exam GI & Abdominal Exam: Soft, Normal Bowel Sounds - Exam Additional comments: + warmth, tenderness to light tough perirectal area B/L. (-) erythema, skin changes, swelling. - Back Exam Back Exam: absent: CVA tenderness (L), CVA tenderness (R) - Neurological Exam Neurological Exam: Alert, Awake, Oriented x3 - Psychiatric Exam Psychiatric exam: Normal Affect, Normal Mood - Skin Skin Exam: Dry, Intact, Normal Color. absent: Erythema, Pallor, Rash Assessment and Plan - Assessment and Plan (Free Text) Assessment: 58 Y/O male with PMHx of NIDDM and schizophrenia presents to ED with worsening rectal pain that started about 4 days ago. Plan: Perirectal abscess - CT abdomen/pelvis: Perirectal abscess, posterior to anus, measuring 2.3 x 3.3 x 1.5 cm in lateral aspect of anus B/L and possible cystitis with bladder wall distended and thickened. (see full report) - Fever resolved with tylenol 325 (Temp 97.7>102.3>100.2) - WBC improving (19.3>19.8) - NPO since midnight - Pain control - Surgery consulted, I & D in OR today - EKG: NSR, No acute changes(Preliminary) - CXR: No active disease, (Preliminary) - Preop labs ordered. - C/W Zosyn IV Q6hr - RPR Negative - HIV, GC/Chlamydia pending. NIDDM - Controlled - Last A1c 5.4 - Metformin to be resumed after I & D - Accucheck AM Microscopic Hematuria - Chronic - UA: RBC +6 - Urine Cytology ordered, Results pending. - F/U with urologist outpatient for cystoscopy Schizophrenia - Chronic, stable - C/W Seroquel DVT prophylaxis - Hold Lovenox tonight - Start tomorrow after surgery. - Continue SCDs. AAD - Florester BID
[2018-06-17] MEDS: Saccharomyces Boulardi 250 mg Cap PO SCH ×2 (08:35→16:14)
[2018-06-17] MEDS: Lactated Ringer's 1,000 ML IV SCH ×3 (09:14→19:24)
[2018-06-17] MEDS ORDERED: Propofol 10 mg/ml Inj (20 ML) ONE (11:16)
--- NOTE | 2018-06-17 11:20 | RAD ---
Date of service: 06/16/2018 HISTORY: pre op COMPARISON: 02/25/2015 TECHNIQUE: Chest PA and lateral FINDINGS: LUNGS: No active pulmonary disease. PLEURA: No significant pleural effusion identified. No pneumothorax apparent. CARDIOVASCULAR: No radiographic findings to suggest acute or significant cardiovascular disease. OSSEOUS STRUCTURES: No significant abnormalities. VISUALIZED UPPER ABDOMEN: Normal. OTHER FINDINGS: None. IMPRESSION: No active disease. No significant interval change compared to the prior examination(s).
[2018-06-17] MEDS ORDERED: Succinylcholine 200 mg/10 ml Inj IV ONE (11:24)
[2018-06-17] MEDS ORDERED: Insulin Lispro (humaLOG) 100 Units/ml Inj SC SCH (11:30)
[2018-06-17] MEDS: Insulin Lispro (humaLOG) 100 Units/ml Inj SC SCH ×3 (12:11→23:33)
[2018-06-17] MEDS ORDERED: Lidocaine 2% MPF (5 ml) Inj ONE (14:13)
[2018-06-17] MEDS ORDERED: Lactated Ringer's 1,000 ML IV ONE (14:20)
[2018-06-17] MEDS ORDERED: Bupivacaine 0.25% Inj(30mL) IJ ONE (14:31)
[2018-06-17] MEDS ORDERED: Lidocaine 2% Inj (20ml) IJ ONE (14:31)
--- NOTE | 2018-06-17 14:48 | PCM.SURG1 ---
Surgeon's Initial Post Op Note - Surgeon's Notes Surgeon: Dr. Holder Chorus Dancer: Len Gamboa PGY3 Type of Anesthesia: General LMA, Local Anesthesia Administered By: Jennifer Pre-Operative Diagnosis: Perirectal abscess Operative Findings: Horseshoe shape perirectal abscess Post-Operative Diagnosis: Same Operation Performed: Incision and drainage of perirectal abscess Specimen/Specimens Removed: Abscess 20cc Estimated Blood Loss: EBL {In ML}: 10 Blood Products Given: N/A Drains Used: Georgie (x3) Post-Op Condition: Good Date of Surgery/Procedure: 06/17/18 Time of Surgery/Procedure: 14:48
[2018-06-17] MEDS ORDERED: HYDROmorphone 0.5 mg/0.5 ml ISec IVP PRN (14:50)
[2018-06-17] MEDS: Enoxaparin 40 mg Syringe SC SCH (22:58)
--- NOTE | 2018-06-18 03:43 | OP ---
PROCEDURE DATE: 06/17/2018 PREOPERATIVE DIAGNOSIS: Horseshoe shaped perirectal abscess. POSTOPERATIVE DIAGNOSIS: Horseshoe shaped perirectal abscess. OPERATION PERFORMED: Incision and drainage and Georgie placement. SURGEON: Austyn Hanson MD. GAS DISPATCHER: Len Gamboa DO. TYPE OF ANESTHESIA: LMA general anesthesia and local anesthesia. ANESTHESIA ADMINISTERED BY: Dr. Rodriguez. ESTIMATED BLOOD LOSS: 10 mL. DRAINS PLACED: Three quarter inch [place]. COMPLICATIONS: None. DESCRIPTION OF PROCEDURE: In the operating room, the patient was identified by name, name of the procedure, laterality, and my annette. After the successful time out, the patient was placed in a lithotomy position, was prepped and draped in sterile fashion. A palpable abscess was located bilaterally and posterior to the rectum. The posterior part of the abscess was aspirated and drained. Culture was taken. Four incisions were made in the shape of the horseshoe, and they are all quarter inch incision. A 20 mL purulent abscess was drained and three Penroses were placed. The incisions were cleaned with peroxide and the saline solution. The dressing was applied, and the patient was taken to the recovery room after the Georgie was stapled to themselves. The patient was extubated. Len Gamboa DO
[2018-06-18] MEDS: Piperacillin/Tazobact 3.375 GM in Sodium Chloride 0.9% 100 ML IVPB SCH ×4 (04:50→22:09)
[2018-06-18] MEDS: Lactated Ringer's 1,000 ML IV SCH (04:55)
[2018-06-18 06:36] LABS: BASO # 0.3 K/uL (0.0-0.2); BASO % 1.4 % (0.0-2.0); EOS # 0.2 K/uL (0.0-0.7); HEMOGLOBIN 9.5 g/dL (12.0-18.0); LYMPH % 17.1 % (20.0-40.0); MEAN CELL VOLUME 84.1 fl (80.0-94.0); MEAN CORPUSCULAR HGB CONC 32.1 g/dL (33.0-37.0); MEAN PLATELET VOLUME 8.7 fl (7.2-11.7); MONO # 1.9 K/uL (0.0-0.8); MONO % 10.9 % (0.0-10.0); NEUT # 12.3 K/uL (1.8-7.0); NEUT % 69.6 % (50.0-75.0); NRBC % 0.1 % (0.0-0.0); RBC 3.52 Mil/uL (4.40-5.90); RED CELL DISTRIBUTION WIDTH 14.1 % (11.5-14.5); WHITE BLOOD COUNT 17.7 K/uL (4.8-10.8)
[2018-06-18 06:51] LABS: BLOOD UREA NITROGEN 13 mg/dl (9-20); CALCIUM 8.7 mg/dL (8.4-10.2); GFR AFRICAN-AMERICAN > 60; GFR NON-AFRICAN AMERICAN > 60
[2018-06-18] MEDS: Insulin Lispro (humaLOG) 100 Units/ml Inj SC SCH ×4 (07:17→22:11)
--- NOTE | 2018-06-18 07:29 | CP.PCM.PN ---
Subjective - Date & Time of Evaluation Date of Evaluation: 06/18/18 Time of Evaluation: 07:27 - Subjective Subjective: General surgery - Dr. Hanson Pt S&E. Fever overnight to 103F. Pt states his perirectal pain has improved s /p I&D. He is tolerating diet and voiding on his own, no BM yet. He denies any Nausea/vomiting/SOb/Chest pain. Dressing changed at bedside. Objective - Vital Signs/Intake and Output Vital Signs (last 24 hours): Temp Pulse Resp BP Pulse Ox 97.6 F 72 20 99/60 L 96 06/18/18 04:00 06/18/18 04:00 06/18/18 04:00 06/18/18 04:00 06/18/18 04:00 - Medications Medications: Current Medications Acetaminophen (Tylenol 325mg Tab) 650 mg PO Q6 PRN PRN Reason: Fever >100.4 F Last Admin: 06/17/18 20:10 Dose: 650 mg Dextrose (Dextrose 50% Inj) 0 ml IV STAT PRN; Protocol PRN Reason: Hypoglycemia Protocol Dextrose (Glutose 15) 0 gm PO ONCE PRN; Protocol PRN Reason: Hypoglycemia Protocol Enoxaparin Sodium (Lovenox) 40 mg SC HS CHARMAINE PRN Reason: Protocol Last Admin: 06/17/18 22:58 Dose: 40 mg Glucagon (Glucagen Diagnostic Kit) 0 mg IM STAT PRN; Protocol PRN Reason: Hypoglycemia Protocol Piperacillin Sod/Tazobactam (Sod 3.375 gm/ Sodium Chloride) 100 mls @ 100 mls/ hr IVPB Q6 CHARMAINE PRN Reason: Protocol Last Admin: 06/18/18 04:50 Dose: 100 mls/hr Vancomycin HCl 1 gm/ Sodium (Chloride) 250 mls @ 166.667 mls/hr IVPB Q12 CHARMAINE PRN Reason: Protocol Last Admin: 06/17/18 22:48 Dose: 166.667 mls/hr Insulin Human Lispro (Humalog) 0 units SC ACHS [facility]MAINE PRN Reason: Protocol Last Admin: 06/18/18 07:17 Dose: Not Given Ketorolac Tromethamine (Toradol) 30 mg IVP Q6 PRN PRN Reason: Pain, moderate (4-7) Last Admin: 06/17/18 08:42 Dose: 30 mg Lisinopril (Zestril) 10 mg PO DAILY [facility] Metformin HCl (Glucophage) 1,000 mg PO BID [facility] Last Admin: 06/17/18 16:13 Dose: 1,000 mg Oxycodone/Acetaminophen (Percocet 5/325 Mg Tab) 2 tab PO Q4 PRN PRN Reason: Pain, Mild (1-3) Stop: 06/20/18 14:50 Quetiapine Fumarate (Seroquel) 200 mg PO Q12H [facility] Last Admin: 06/17/18 23:30 Dose: 200 mg Saccharomyces Boulardii (Florastor) 250 mg PO BID [facility] Last Admin: 06/17/18 16:14 Dose: 250 mg - Labs Labs: 06/18/18 05:40 06/18/18 05:40 PT 14.8 Seconds (9.8-13.1) H 06/17/18 06:00 INR 1.3 (0.9-1.2) H 06/17/18 06:00 APTT 30.9 Seconds (25.6-37.1) 06/17/18 06:00 - Constitutional Appears: No Acute Distress - Head Exam Head Exam: ATRAUMATIC, NORMAL INSPECTION, NORMOCEPHALIC - Eye Exam Eye Exam: Normal appearance - Respiratory Exam Respiratory Exam: NORMAL BREATHING PATTERN. absent: Respiratory Distress - Cardiovascular Exam Cardiovascular Exam: REGULAR RHYTHM - GI/Abdominal Exam GI & Abdominal Exam: Soft. absent: Distended, Tenderness - Rectal Exam Additional comments: aurora drains b/l , 4 total, dressing saturated with sanguinous/purulent drainage, changed to clean dressing, Erythema and induration improved - Neurological Exam Neurological Exam: Alert, Oriented x3 - Psychiatric Exam Psychiatric exam: Normal Affect, Normal Mood - Skin Skin Exam: Dry, Intact Assessment and Plan - Assessment and Plan (Free Text) Assessment: 58yo M with perirectal horseshoe abscess s/p I&D, POD 1 -Continue IV Abx -Dressing changes daily and prn if saturated -F/U Cx -Encourage OOB and ambulation Dw Dr Valentin Méndez PGY4
[2018-06-18] MEDS: Oxycodone/Acetaminophen 5/325 mg Tab PO PRN ×3 (08:17→22:15)
[2018-06-18] MEDS: Saccharomyces Boulardi 250 mg Cap PO SCH ×2 (08:19→16:17)
--- NOTE | 2018-06-18 09:41 | CP.PCM.PN ---
Subjective - Date & Time of Evaluation Date of Evaluation: 06/18/18 Time of Evaluation: 07:25 - Subjective Subjective: Patient evaluated and examined bedside. S/P perirectal abscess drainage. Spiked fever and chills yesterday at 8.00 pm which improved with tylenol, motrin and cold compresses. Patient also had elevated BP yesterday which improved with Lisinopril 10 mg. He denies any H/O HTN. Pt reports 10/10 rectal pain. Currently denies any fever, chills, N/V/D, abdominal pain, CP or SOB. Objective - Vital Signs/Intake and Output Vital Signs (last 24 hours): Temp Pulse Resp BP Pulse Ox 97.9 F 76 20 128/70 99 06/18/18 08:09 06/18/18 08:21 06/18/18 08:09 06/18/18 08:21 06/18/18 08:09 - Medications Medications: Current Medications Acetaminophen (Tylenol 325mg Tab) 650 mg PO Q6 PRN PRN Reason: Fever >100.4 F Last Admin: 06/17/18 20:10 Dose: 650 mg Dextrose (Dextrose 50% Inj) 0 ml IV STAT PRN; Protocol PRN Reason: Hypoglycemia Protocol Dextrose (Glutose 15) 0 gm PO ONCE PRN; Protocol PRN Reason: Hypoglycemia Protocol Enoxaparin Sodium (Lovenox) 40 mg SC HS CHARMAINE PRN Reason: Protocol Last Admin: 06/17/18 22:58 Dose: 40 mg Glucagon (Glucagen Diagnostic Kit) 0 mg IM STAT PRN; Protocol PRN Reason: Hypoglycemia Protocol Piperacillin Sod/Tazobactam (Sod 3.375 gm/ Sodium Chloride) 100 mls @ 100 mls/ hr IVPB Q6 CHARMAINE PRN Reason: Protocol Last Admin: 06/18/18 04:50 Dose: 100 mls/hr Vancomycin HCl 1 gm/ Sodium (Chloride) 250 mls @ 166.667 mls/hr IVPB Q12 CHARMAINE PRN Reason: Protocol Last Admin: 06/18/18 08:27 Dose: 166.667 mls/hr Insulin Human Lispro (Humalog) 0 units SC ACHS CHARMAINE PRN Reason: Protocol Last Admin: 06/18/18 07:17 Dose: Not Given Ketorolac Tromethamine (Toradol) 30 mg IVP Q6 PRN PRN Reason: Pain, moderate (4-7) Last Admin: 06/17/18 08:42 Dose: 30 mg Lisinopril (Zestril) 10 mg PO DAILY [facility] Last Admin: 06/18/18 08:21 Dose: 10 mg Metformin HCl (Glucophage) 1,000 mg PO BID [facility] Last Admin: 06/18/18 08:20 Dose: 1,000 mg Oxycodone/Acetaminophen (Percocet 5/325 Mg Tab) 2 tab PO Q4 PRN PRN Reason: Pain, Mild (1-3) Stop: 06/20/18 14:50 Last Admin: 06/18/18 08:17 Dose: 2 tab Quetiapine Fumarate (Seroquel) 200 mg PO Q12H [facility] Last Admin: 06/17/18 23:30 Dose: 200 mg Saccharomyces Boulardii (Florastor) 250 mg PO BID [facility] Last Admin: 06/18/18 08:19 Dose: 250 mg - Labs Labs: 06/18/18 05:40 06/18/18 05:40 PT 14.8 Seconds (9.8-13.1) H 06/17/18 06:00 INR 1.3 (0.9-1.2) H 06/17/18 06:00 APTT 30.9 Seconds (25.6-37.1) 06/17/18 06:00 - Constitutional Appears: Well, Non-toxic, No Acute Distress - Head Exam Head Exam: ATRAUMATIC, NORMAL INSPECTION, NORMOCEPHALIC - Eye Exam Eye Exam: EOMI, Normal appearance - ENT Exam ENT Exam: Mucous Membranes Moist - Neck Exam Neck Exam: Full ROM - Respiratory Exam Respiratory Exam: Clear to Ausculation Bilateral, NORMAL BREATHING PATTERN - Cardiovascular Exam Cardiovascular Exam: REGULAR RHYTHM, +S1, +S2. absent: Murmur - GI/Abdominal Exam GI & Abdominal Exam: Soft, Normal Bowel Sounds - Exam Additional comments: Dressing present S/P perirectal abscess drainage. Rectal tenderness +. Assessment and Plan - Assessment and Plan (Free Text) Assessment: 58 Y/O male with PMHx of NIDDM and schizophrenia presents to ED with worsening rectal pain that started about 4 days ago. Plan: Perirectal abscess - CT abdomen/pelvis: Perirectal abscess, posterior to anus, measuring 2.3 x 3.3 x 1.5 cm in lateral aspect of anus B/L and possible cystitis with bladder wall distended and thickened. (see full report) - I & D completed, Abscess drained, 20 cc, 3 x Gaylord drain placed. - Dressing to be changed QD, PRN if soaked as per surgery. - WBC improving (Last 17.7) - Wound culture: Gram negative farnaz +, Gram positive cocci +(preliminary) - C/W Zosyn IV Q6hr Day 2 and Vancomycin Day 1 - RPR and HIV Negative - Hepatits C pending. Fever - Afebrile - Spiked fever 06/17 @ 8.00 pm, improved with tylenol, advil and cold compresses - Will monitor vitals Leukocytosis - Uncontrolled - Last WBC 17.7 (previous 19.3) - Currently on Vancomycin and Zosyn - F/U cbc Rectal pain - 10/10 in AM. - Percocet 5/325 given in morning. - Percocet 5/325 Q4 hr PRN for pain, Toradol PRN for pain Elevated BP - Normalized with Lisinopril 10 mg - Denies any chronic H/O HTN - Most likely due to anxiety/fever/pain - D/C Lisinopril 10 mg - Monitor vitals NIDDM - Controlled - Last A1c 5.4 - Met - Accucheck AM Microscopic Hematuria - Chronic - UA: RBC +6 - Urine Cytology Results pending. - F/U with urologist outpatient for cystoscopy Schizophrenia - Chronic, stable - C/W Seroquel DVT prophylaxis - Continue Lovenox 40 mg SC. - Continue SCDs. AAD - Florester BID
--- NOTE | 2018-06-18 15:32 | CARD ---
APPROVED REPORT Date of service: 06/16/2018 EKG Measurement Heart [id number] <Conclusion> Normal sinus rhythm Nonspecific T wave abnormality Abnormal ECG
[2018-06-18 17:05] LABS: HEPATITIS C ANTIBODY NEGATIVE (NEGATIVE)
[2018-06-18] MEDS: Enoxaparin 40 mg Syringe SC SCH (22:10)
[2018-06-18 23:10] LABS: OPIATES, UR NEGATIVE (NEGATIVE)
[2018-06-18 23:11] LABS: BARBITURATES, UR NEGATIVE (NEGATIVE); BENZODIAZEPINES, UR NEGATIVE (NEGATIVE); PHENCYCLIDINE, UR NEGATIVE (NEGATIVE)
[2018-06-19 01:01] VITALS: O2SAT 97
[2018-06-19] MEDS: Piperacillin/Tazobact 3.375 GM in Sodium Chloride 0.9% 100 ML IVPB SCH ×2 (04:46→10:05)
[2018-06-19 06:17] LABS: BASO # 0.1 K/uL (0.0-0.2); BASO % 0.5 % (0.0-2.0); EOS # 0.4 K/uL (0.0-0.7); EOS % 2.5 % (0.0-4.0); HEMOGLOBIN 8.9 g/dL (12.0-18.0); LYMPH # 2.5 K/uL (1.0-4.3); LYMPH % 15.7 % (20.0-40.0); MEAN CELL VOLUME 83.8 fl (80.0-94.0); MEAN CORPUSCULAR HEMOGLOBIN 26.9 pg (27.0-31.0); MEAN CORPUSCULAR HGB CONC 32.1 g/dL (33.0-37.0); MEAN PLATELET VOLUME 8.4 fl (7.2-11.7); MONO # 1.5 K/uL (0.0-0.8); MONO % 9.7 % (0.0-10.0); NEUT # 11.3 K/uL (1.8-7.0); NEUT % 71.6 % (50.0-75.0); RBC 3.31 Mil/uL (4.40-5.90); RED CELL DISTRIBUTION WIDTH 14.2 % (11.5-14.5); WHITE BLOOD COUNT 15.8 K/uL (4.8-10.8)
[2018-06-19] MEDS: Insulin Lispro (humaLOG) 100 Units/ml Inj SC SCH (06:43)
--- NOTE | 2018-06-19 07:54 | CP.PCM.PN ---
Subjective - Date & Time of Evaluation Date of Evaluation: 06/19/18 Time of Evaluation: 07:52 - Subjective Subjective: General Surgery Dr. Hanson Pt S&E @bedside. JULIANO. Pt afebrile. no complaints. reports improved pain. denies F/C, N/V. admits to diarrhea. reports changing his own dressing as needed. tolerating diet. Objective - Vital Signs/Intake and Output Vital Signs (last 24 hours): Temp Pulse Resp BP Pulse Ox 98.6 F 78 19 126/74 97 06/19/18 04:00 06/19/18 00:00 06/19/18 00:00 06/19/18 00:00 06/19/18 00:00 - Medications Medications: Current Medications Acetaminophen (Tylenol 325mg Tab) 650 mg PO Q6 PRN PRN Reason: Fever >100.4 F Last Admin: 06/17/18 20:10 Dose: 650 mg Dextrose (Dextrose 50% Inj) 0 ml IV STAT PRN; Protocol PRN Reason: Hypoglycemia Protocol Dextrose (Glutose 15) 0 gm PO ONCE PRN; Protocol PRN Reason: Hypoglycemia Protocol Enoxaparin Sodium (Lovenox) 40 mg SC HS CHARMAINE PRN Reason: Protocol Last Admin: 06/18/18 22:10 Dose: Not Given Glucagon (Glucagen Diagnostic Kit) 0 mg IM STAT PRN; Protocol PRN Reason: Hypoglycemia Protocol Piperacillin Sod/Tazobactam (Sod 3.375 gm/ Sodium Chloride) 100 mls @ 100 mls/ hr IVPB Q6 CHARMAINE PRN Reason: Protocol Last Admin: 06/19/18 04:46 Dose: 100 mls/hr Vancomycin HCl 1 gm/ Sodium (Chloride) 250 mls @ 166.667 mls/hr IVPB Q12 CHARMAINE PRN Reason: Protocol Last Admin: 06/18/18 20:29 Dose: 166.667 mls/hr Insulin Human Lispro (Humalog) 0 units SC ACHS CHARMAINE PRN Reason: Protocol Last Admin: 06/19/18 06:43 Dose: Not Given Ketorolac Tromethamine (Toradol) 30 mg IVP Q6 PRN PRN Reason: Pain, moderate (4-7) Last Admin: 06/17/18 08:42 Dose: 30 mg Metformin HCl (Glucophage) 1,000 mg PO BID CHARMAINE Last Admin: 06/18/18 16:17 Dose: 1,000 mg Morphine Sulfate (Morphine) 2 mg IVP Q4 PRN PRN Reason: Pain, severe (8-10) Oxycodone/Acetaminophen (Percocet 5/325 Mg Tab) 2 tab PO Q4 PRN PRN Reason: Pain, Mild (1-3) Stop: 06/20/18 14:50 Last Admin: 06/18/18 22:15 Dose: 2 tab Quetiapine Fumarate (Seroquel) 200 mg PO Q12H [facility] Last Admin: 06/18/18 22:17 Dose: 200 mg Saccharomyces Boulardii (Florastor) 250 mg PO BID [facility] Last Admin: 06/18/18 16:17 Dose: 250 mg - Labs Labs: 06/19/18 06:00 06/18/18 05:40 PT 14.8 Seconds (9.8-13.1) H 06/17/18 06:00 INR 1.3 (0.9-1.2) H 06/17/18 06:00 APTT 30.9 Seconds (25.6-37.1) 06/17/18 06:00 - Constitutional Appears: Non-toxic, No Acute Distress - Head Exam Head Exam: NORMAL INSPECTION - Eye Exam Eye Exam: Normal appearance - ENT Exam ENT Exam: Mucous Membranes Moist - Respiratory Exam Respiratory Exam: NORMAL BREATHING PATTERN. absent: Accessory Muscle Use, Respiratory Distress - Cardiovascular Exam Cardiovascular Exam: REGULAR RHYTHM. absent: Bradycardia, Tachycardia - GI/Abdominal Exam GI & Abdominal Exam: Soft. absent: Distended, Guarding, Tenderness, Rebound - Rectal Exam Additional comments: aurora drains in place draining serosang drainage - Extremities Exam Extremities Exam: Normal Inspection - Neurological Exam Neurological Exam: Alert, Awake, Oriented x3 - Psychiatric Exam Psychiatric exam: Normal Affect, Normal Mood - Skin Skin Exam: Dry, Intact, Normal Color, Warm Assessment and Plan - Assessment and Plan (Free Text) Assessment: 58 y/o M POD#2 s/p drainage of horseshoe naheed-rectal abscess w/ continued, though improving leukocytosis - cont pain management - f/u final Cx and sensitivities - cont IV Abx - ADAT - montitor bowel fxn - change dressing daily + PRN - encourage OOB to chair/Amb Pt discussed w/ Dr. Valentin Dugan DO PGY3
[2018-06-19 07:58] VITALS: BP 159/90; PULSE 82; RESP 20; TEMP 99.8
[2018-06-19] MEDS: Saccharomyces Boulardi 250 mg Cap PO SCH (08:32)
[2018-06-19] MEDS: Oxycodone/Acetaminophen 5/325 mg Tab PO PRN (08:37)
[2018-06-19 10:38] LABS: IRON 19 ug/dL (49-181)
[2018-06-19 10:48] LABS: % IRON SATURATION 8 % (20-55); TOTAL IRON BINDING CAPACITY 257 ug/dL (250-450)
--- NOTE | 2018-06-19 14:50 | CP.PCM.DIS ---
Provider - Provider Date of Admission: 06/16/18 17:28 Attending physician: Amarilis Banda MD Time Spent in preparation of Discharge (in minutes): 15 Diagnosis - Discharge Diagnosis (1) Sue-rectal abscess Status: Acute (2) Diabetes Status: Chronic (3) Asymptomatic microscopic hematuria Status: Chronic (4) Schizophrenia Status: Chronic Hospital Course - Lab Results Lab Results: Micro Results 06/16/18 14:15 Blood-Venous Blood Culture - Preliminary NO GROWTH AFTER 3 DAYS 06/17/18 17:51 Other: Please Indicate Gram Stain - Final 06/17/18 17:51 Other: Please Indicate Wound Culture - Final Escherichia Coli Group C Streptococcus 06/17/18 21:00 Blood Blood Culture - Preliminary NO GROWTH AFTER 24 HOURS 06/17/18 20:30 Blood Blood Culture - Preliminary NO GROWTH AFTER 24 HOURS 06/16/18 14:02 Blood-Venous Blood Culture - Preliminary NO GROWTH AFTER 48 HOURS 06/16/18 19:20 Urine,Clean Catch Urine Culture - Final No Growth (<1,000 CFU/ML) Most Recent Lab Values WBC 15.8 K/uL (4.8-10.8) H 06/19/18 06:00 RBC 3.31 Mil/uL (4.40-5.90) L 06/19/18 06:00 Hgb 8.9 g/dL (12.0-18.0) L 06/19/18 06:00 Hct 27.7 % (35.0-51.0) L 06/19/18 06:00 MCV 83.8 fl (80.0-94.0) 06/19/18 06:00 MCH 26.9 pg (27.0-31.0) L 06/19/18 06:00 MCHC 32.1 g/dL (33.0-37.0) L 06/19/18 06:00 RDW 14.2 % (11.5-14.5) 06/19/18 06:00 Plt Count 356 K/uL (130-400) 06/19/18 06:00 MPV 8.4 fl (7.2-11.7) 06/19/18 06:00 Neut % (Auto) 71.6 % (50.0-75.0) 06/19/18 06:00 Lymph % (Auto) 15.7 % (20.0-40.0) L 06/19/18 06:00 [place] % (Auto) 9.7 % (0.0-10.0) 06/19/18 06:00 Eos % (Auto) 2.5 % (0.0-4.0) 06/19/18 06:00 Baso % (Auto) 0.5 % (0.0-2.0) 06/19/18 06:00 Neut # (Auto) 11.3 K/uL (1.8-7.0) H 06/19/18 06:00 Lymph # (Auto) 2.5 K/uL (1.0-4.3) 06/19/18 06:00 [place] # (Auto) 1.5 K/uL (0.0-0.8) H 06/19/18 06:00 Eos # (Auto) 0.4 K/uL (0.0-0.7) 06/19/18 06:00 Baso # (Auto) 0.1 K/uL (0.0-0.2) 06/19/18 06:00 Neutrophils % (Manual) 72 % (42-75) 06/16/18 13:40 Band Neutrophils % 1 % (0-2) 06/16/18 13:40 Lymphocytes % (Manual) 17 % (20-50) L 06/16/18 13:40 Reactive Lymphs % 2 % (0-0) H 06/16/18 13:40 Monocytes % (Manual) 7 % (0-10) 06/16/18 13:40 Basophils % (Manual) 1 % (0-2) 06/16/18 13:40 Hypersegmented Polys Present 06/16/18 13:40 Platelet Estimate Normal (NORMAL) 06/16/18 13:40 Hypochromasia (manual) Slight 06/16/18 13:40 PT 14.8 Seconds (9.8-13.1) H 06/17/18 06:00 INR 1.3 (0.9-1.2) H 06/17/18 06:00 APTT 30.9 Seconds (25.6-37.1) 06/17/18 06:00 Sodium 141 mmol/l (132-148) 06/18/18 05:40 Potassium 4.0 MMOL/L (3.6-5.0) 06/18/18 05:40 Chloride 106 mmol/L (98-107) 06/18/18 05:40 Carbon Dioxide 24 mmol/L (22-30) 06/18/18 05:40 Anion Gap 15 (10-20) 06/18/18 05:40 BUN 13 mg/dl (9-20) 06/18/18 05:40 Creatinine 0.9 mg/dl (0.8-1.5) 06/18/18 05:40 Est GFR ( Amer) > 60 06/18/18 05:40 Est GFR (Non-Af Amer) > 60 06/18/18 05:40 POC Glucose (mg/dL) 156 mg/dL (65-110) H 06/19/18 11:04 Random Glucose 123 mg/dL (75-110) H 06/18/18 05:40 Calcium 8.7 mg/dL (8.4-10.2) 06/18/18 05:40 Iron 19 ug/dL (49-181) L 06/19/18 10:21 TIBC 257 ug/dL (250-450) 06/19/18 10:21 % Saturation 8 % (20-55) L 06/19/18 10:21 Ferritin 526.0 ng/Ml (17.9-464) H 06/19/18 10:21 Total Bilirubin 1.3 mg/dl (0.2-1.3) 06/17/18 06:00 AST 26 U/L (17-59) 06/17/18 06:00 ALT 26 U/L (21-72) 06/17/18 06:00 Alkaline Phosphatase 98 U/L (38-126) 06/17/18 06:00 Total Protein 7.1 G/DL (6.3-8.2) 06/17/18 06:00 Albumin 3.6 g/dL (3.5-5.0) 06/17/18 06:00 Globulin 3.5 gm/dL (2.2-3.9) 06/17/18 06:00 Albumin/Globulin Ratio 1.0 (1.0-2.1) 06/17/18 06:00 Urine Color Yellow (YELLOW) 06/16/18 14:23 Urine Clarity Slighty-cloudy (Clear) 06/16/18 14:23 Urine pH 5.0 (5.0-8.0) 06/16/18 14:23 Ur Specific [place] 1.027 (1.003-1.030) 06/16/18 14:23 Urine Protein 100 mg/dL (NEGATIVE) 06/16/18 14:23 Urine Glucose (UA) 50 mg/dL (Normal) 06/16/18 14:23 Urine Ketones Negative mg/dL (NEGATIVE) 06/16/18 14:23 Urine Blood Small (NEGATIVE) 06/16/18 14:23 Urine Nitrate Negative (NEGATIVE) 06/16/18 14:23 Urine Bilirubin Negative (NEGATIVE) 06/16/18 14:23 Urine Urobilinogen 2.0 mg/dL (0.2-1.0) 06/16/18 14:23 Ur Leukocyte Esterase Neg Ale/uL (Negative) 06/16/18 14:23 Urine RBC (Auto) 6 /hpf (0-3) H 06/16/18 14:23 Urine Microscopic WBC 1 /hpf (0-5) 06/16/18 14:23 Ur Squamous Epith Cells < 1 /hpf (0-5) 06/16/18 14:23 Urine Bacteria Rare (<OCC) 06/16/18 14:23 Hyaline Casts 0-2 /hpf (0-2) 06/16/18 14:23 Vancomycin Trough 6.8 ug/mL (5.0-10.0) 06/19/18 08:06 Urine Opiates Screen Negative (NEGATIVE) 06/18/18 22:52 Urine Methadone Screen Negative (NEGATIVE) 06/18/18 22:52 Ur Barbiturates Screen Negative (NEGATIVE) 06/18/18 22:52 Ur Phencyclidine Scrn Negative (NEGATIVE) 06/18/18 22:52 Ur Amphetamines Screen Negative (NEGATIVE) 06/18/18 22:52 U Benzodiazepines Scrn Negative (NEGATIVE) 06/18/18 22:52 U Oth Cocaine Metabols Negative (NEGATIVE) 06/18/18 22:52 U Cannabinoids Screen Negative (NEGATIVE) 06/18/18 22:52 RPR Nonreactive (NONREACTIVE) 06/16/18 19:15 C.trachomatis RNA (TMA) Not detected (Not Detected) 06/16/18 18:52 Hepatitis C Antibody Negative (NEGATIVE) 06/18/18 05:40 HIV 1&2 Ag/Ab, 4th Gen Nonreactive (Nonreactive) 06/16/18 19:15 N.gonorrhoeae RNA (TMA) Not detected (Not Detected) 06/16/18 18:52 - Hospital Course Hospital Course: 58 y/o M with PMHx of NIDDM and Schizophrenia presented to ER c/o rectal pain for the past 4 days that has been progressively worsening. Patient evaluated and diagnosed with Perirectal abscess on CT abdomen/pelvis. Surgery consulted. Abscess drained and patient started on pain medications and IV Abx. Patient's fever, pain, improved. Pt discharged on Bactrim BID x 7 days and metformin 1000 BID. Pt to F/u with PMD and surgery in 1 week. F/U with urologist for microscopic hematuria. Discharge Medications Gemfibrozil [Lopid] 600 mg PO Q12 #60 tab MetFORMIN [glucoPHAGE] 1,000 mg PO BID #60 tab Sulfamethoxazole/Trimethoprim [Bactrim DS 800 mg-160 mg] 1 tab PO Q12 #14 tab Discharge Exam - Head Exam Head Exam: ATRAUMATIC, NORMAL INSPECTION, NORMOCEPHALIC - Eye Exam Eye Exam: EOMI, Normal appearance, PERRL Pupil Exam: NORMAL ACCOMODATION, PERRL - ENT Exam ENT Exam: Mucous Membranes Moist - Neck Exam Neck exam: Full Rom - Respiratory Exam Respiratory Exam: Clear to PA & Lateral, NORMAL BREATHING PATTERN. absent: Rales, Rhonchi, Wheezes, Respiratory Distress - Cardiovascular Exam Cardiovascular Exam: REGULAR RHYTHM, +S1, +S2. absent: Systolic Murmur - GI/Abdominal Exam GI & Abdominal Exam: Diminished Bowel Sounds, Normal Bowel Sounds - Rectal Exam Additional comments: + perirectal tenderness, Dressing + and Georgie drain + - Back Exam Back exam: absent: CVA tenderness (L), CVA tenderness (R) - Neurological Exam Neurological exam: Alert, Oriented x3 - Psychiatric Exam Psychiatric exam: Normal Affect, Normal Mood - Skin Skin Exam: Dry, Intact, Normal Color Discharge Plan - Discharge Medications Prescriptions: Gemfibrozil [Lopid] 600 mg PO Q12 #60 tab MetFORMIN [glucoPHAGE] 1,000 mg PO BID #60 tab Sulfamethoxazole/Trimethoprim [Bactrim DS 800 mg-160 mg] 1 tab PO Q12 #14 tab - Follow Up Plan Condition: STABLE Disposition: HOME/ ROUTINE Instructions: Abscess Incision and Drainage (DC), Abscess (GEN) Additional Instructions: follow up with primary MD and Dr. hanson 1 week Referrals: [facility] [Outside] Austyn Hanson MD [Staff Provider] -
== END 2018-06-19 11:46 | disposition home or self-care (01) | DRG 148 ==
LOC: H.ER 11:32 → H.ERHOLD 17:28 → H.MEDSURG1 06-17 00:03
PROVIDERS: ADMIT Family Medicine Geriatric Medicine; ATTEND Family Medicine Geriatric Medicine
PROC: 0D9P30Z Drainage of Rectum with Drainage Device, Percutaneous Approach (ICD-10-PCS; principal; 2018-06-17 12:45)
DX: K61.1 Rectal abscess (principal); F20.9 Schizophrenia, unspecified; R31.21 Asymptomatic microscopic hematuria; D72.829 Elevated white blood cell count, unspecified; E11.9 Type 2 diabetes mellitus without complications; B95.4 Other streptococcus as the cause of diseases classified elsewhere; B96.20 Unspecified Escherichia coli [E. coli] as the cause of diseases classified elsewhere; R03.0 Elevated blood-pressure reading, without diagnosis of hypertension; F17.210 Nicotine dependence, cigarettes, uncomplicated; Z79.84 Long term (current) use of oral hypoglycemic drugs

== ENCOUNTER 2018-07-06 13:57 | Emergency (ER) | payer MEDICAID ==
[2018-07-06 13:58] VITALS: BMI 27.4
[2018-07-06] MEDS ORDERED: POLYETHYLENE GLYCOL 3350 17 GM/Dose PACKET PO STA (15:03)
--- NOTE | 2018-07-06 16:21 | RAD ---
Date of service: 07/06/2018 PROCEDURE: Radiographs of the chest and abdomen (obstructive series) HISTORY: CONSTIPATION COMPARISON: No prior. TECHNIQUE: AP radiograph of the chest, with upright and supine radiographs of the abdomen. FINDINGS: CHEST: Lungs: Clear. Cardiovascular: Normal size heart. No pulmonary vascular congestion. Pleura: No pleural fluid. No pneumothorax. Other findings: None. ABDOMEN AND PELVIS: Bowel: Unremarkable bowel gas pattern. No evidence of mechanical obstruction. Free air: None. Bones: Unremarkable. Other findings: None. IMPRESSION: Unremarkable radiographs of chest and abdomen. No evidence of mechanical bowel obstruction.
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
[2018-07-06 18:05] VITALS: BP 156/97; PULSE 82; RESP 16; TEMP 98.1
[2018-07-06 18:35] VITALS: O2SAT 97
== END 2018-07-06 18:50 | disposition home or self-care (01) ==
LOC: H.ER 13:57
DX: K59.00 Constipation, unspecified (principal); E11.9 Type 2 diabetes mellitus without complications; Z79.84 Long term (current) use of oral hypoglycemic drugs; F20.9 Schizophrenia, unspecified

== ENCOUNTER 2018-08-15 14:57 | Observation (INO) | payer MEDICAID ==
[2018-08-15 14:58] VITALS: BMI 27.4
[2018-08-15] MEDS ORDERED: Sodium Chloride 0.9% 1,000 ML IV STA (15:27)
--- NOTE | 2018-08-15 15:33 | ED PDOC ---
HPI: Skin/Bite Injury Time Seen by Provider: 08/15/18 15:15 Chief Complaint (Nursing): Abnormal Skin Integrity Chief Complaint (Provider): Abscess History Per: Patient Additional Complaint(s): Hayden Spain Jr is a 58 year old male, with a past medical history of diabetes, who presents to the emergency department stating he started feeling an abscess in the perirectal region this morning. Patient reports he had a surgery performed by Dr. Hanson for a similar abscess in May. He denies any bleeding or drainage, fever, chills, urinary symptoms or other medical complaints. PMD: Melecio Benjamin Past Medical History Reviewed: Historical Data, Nursing Documentation, Vital Signs Vital Signs: Last Vital Signs Temp 98.7 F 08/15/18 18:43 Pulse 85 08/15/18 18:43 Resp 16 08/15/18 18:43 BP 146/90 08/15/18 18:43 Pulse Ox 100 08/15/18 18:43 - Medical History PMH: Arthritis, Back Problems, Diabetes, Schizophrenia - Surgical History Surgical History: Back Surgery - Family History Family History: States: Diabetes - Living Arrangements Living Arrangements: With Family - Social History Current smoker - smoking cessation education provided: Yes (Light smoker <10 cigarettes daily) Alcohol: Social Drugs: Cocaine - Home Medications Home Medications: Ambulatory Orders Medication Instructions Recorded Alprazolam [Xanax] 2 mg PO Q6 PRN 02/25/18 Quetiapine Fumarate [Quetiapine 400 mg PO HS 06/16/18 Fumarate ER] Gemfibrozil [Lopid] 600 mg PO Q12 #60 tab 06/19/18 MetFORMIN [glucoPHAGE] 1,000 mg PO BID #60 tab 06/19/18 - Allergies Allergies/Adverse Reactions: Allergies Allergy/AdvReac Type Severity Reaction Status Date / Time No Known Allergies Allergy Verified 08/15/18 15:10 Review of Systems ROS Statement: Except As Marked, All Systems Reviewed And Found Negative Constitutional: Negative for: Fever, Chills Gastrointestinal: Positive for: Rectal Pain (possible abscess) Genitourinary Male: Negative for: Dysuria, Frequency, Incontinence Physical Exam - Reviewed Nursing Documentation Reviewed: Yes Vital Signs Reviewed: Yes - Physical Exam Appears: Positive for: Well, Non-toxic, No Acute Distress Head Exam: Positive for: NORMAL INSPECTION, NORMOCEPHALIC Skin: Positive for: Normal Color, Warm, Dry. Negative for: Rash Eye Exam: Positive for: Normal appearance Cardiovascular/Chest: Positive for: Regular Rate, Rhythm Respiratory: Positive for: Normal Breath Sounds. Negative for: Respiratory Distress Gastrointestinal/Abdominal: Positive for: Soft. Negative for: Tenderness Rectal: Positive for: Rectal Tone Is: (normal), Tenderness (2 cm area of inflammation to perirectal region with no central pointing or fluctuance. Mild tenderness to palpation) Extremity: Positive for: Normal ROM (upper and lower extremities). Negative for : Pedal Edema, Deformity Neurologic/Psych: Positive for: Alert, Oriented - Laboratory Results Result Diagrams: 08/15/18 15:31 08/15/18 15:31 - ECG O2 Sat by Pulse Oximetry: 98 (RA) Pulse Ox Interpretation: Normal - Other Rad CT pelvis with IV contrast X-Ray: Read By Radiologist X-Ray Interpretation: see below Medical Decision Making Medical Decision Making: Time: 15:15 Initial Impression: 58 y/o with rectal pain Initial Plan: - Case was discussed with hand frame surgical elastic knitter Dr. Wilkinson who states to order CT pelvis with IV contrast and labs. She will come to bedside to see patient. --Pelvis w/IV Contrast [CT] --CMP --CBC w/ differential --Sodium Chloride 1,000 ml IV 1,000 mls/hr 4:15 pm: Glucose is 366, 1000 mg metformin given along with 4 units SC insulin 4:30 pm: president celebrity acquistion at bedside states that no fluctuant abscesses noted. CT: IMPRESSION: There appears to be a peripherally enhancing loculated fluid collection in the perianal region measuring 1.4 x 1.2 x 1.1 cm suspicious for perianal abscess. There is additional cellulitis in the perianal region and in the medial buttocks, greater on the right than on the left. 6:20 pm: above results were d/w hand frame surgical elastic knitter, Dr. Wilkinson. Patient will be admitted. Case was d/w Dr. Briseno who will admit patient. Patient agrees with plan. IV vancomycin and zosyn started. Scribe Attestation: Documented by Jong Celestin, acting as a scribe for Xiomara Hopkins PA-C Provider Scribe Attestation: All medical record entries made by the Scribe were at my direction and personally dictated by me. I have reviewed the chart and agree that the record accurately reflects my personal performance of the history, physical exam, medical decision making, and the department course for this patient. I have also personally directed, reviewed, and agree with the discharge instructions and disposition. Disposition - Clinical Impression Clinical Impression: Perineal abscess, Cellulitis of perineum - Patient ED Disposition Is Patient to be Admitted: Yes - Disposition Disposition Time: 19:00 Condition: FAIR - Pt Status Changed To: Hospital Disposition Of: Observation - POA Present On Arrival: Poor Glycemic Control Results - Lab Results Lab Results: 08/15/18 08/15/18 08/15/18 18:06 15:31 15:31 WBC 9.2 RBC 4.97 Hgb 13.5 D Hct 40.7 MCV 81.9 MCH 27.2 MCHC 33.2 RDW 15.4 H Plt Count 321 MPV 8.3 Neut % (Auto) 56.9 Lymph % (Auto) 33.1 [place] % (Auto) 7.8 Eos % (Auto) 1.1 Baso % (Auto) 1.1 Neut # (Auto) 5.2 Lymph # (Auto) 3.0 [place] # (Auto) 0.7 Eos # (Auto) 0.1 Baso # (Auto) 0.1 Sodium 136 Potassium 4.7 Chloride 100 Carbon Dioxide 27 Anion Gap 14 BUN 17 Creatinine 1.0 Est GFR ( Amer) > 60 Est GFR (Non-Af Amer) > 60 POC Glucose (mg/dL) 224 H Random Glucose 366 H Calcium 9.5 Total Bilirubin 0.5 AST 39 ALT 25 Alkaline Phosphatase 147 H D Total Protein 8.4 H Albumin 4.3 Globulin 4.1 H Albumin/Globulin Ratio 1.1
[2018-08-15 15:50] LABS: BASO # 0.1 K/uL (0.0-0.2); BASO % 1.1 % (0.0-2.0); EOS # 0.1 K/uL (0.0-0.7); EOS % 1.1 % (0.0-4.0); HEMOGLOBIN 13.5 g/dL (12.0-18.0); LYMPH % 33.1 % (20.0-40.0); MEAN CELL VOLUME 81.9 fl (80.0-94.0); MEAN CORPUSCULAR HEMOGLOBIN 27.2 pg (27.0-31.0); MEAN CORPUSCULAR HGB CONC 33.2 g/dL (33.0-37.0); MEAN PLATELET VOLUME 8.3 fl (7.2-11.7); MONO # 0.7 K/uL (0.0-0.8); MONO % 7.8 % (0.0-10.0); NEUT # 5.2 K/uL (1.8-7.0); NEUT % 56.9 % (50.0-75.0); NRBC % 0.2 % (0.0-0.0); RBC 4.97 Mil/uL (4.40-5.90); RED CELL DISTRIBUTION WIDTH 15.4 % (11.5-14.5); WHITE BLOOD COUNT 9.2 K/uL (4.8-10.8)
[2018-08-15 16:15] LABS: ALB/GLOB RATIO 1.1 (1.0-2.1); ALBUMIN 4.3 g/dL (3.5-5.0); BLOOD UREA NITROGEN 17 mg/dl (9-20); CALCIUM 9.5 mg/dL (8.4-10.2); GFR NON-AFRICAN AMERICAN > 60
[2018-08-15 16:18] LABS: ALT/SGPT 25 U/L (21-72); AST/SGOT 39 U/L (17-59)
[2018-08-15] MEDS ORDERED: Insulin NPH Human 100 Units/ml Inj SC STA (16:29)
[2018-08-15] MEDS ORDERED: Insulin Regular 100 units/ml ONE (16:40)
[2018-08-15] MEDS ORDERED: Insulin Regular 100 units/ml SC STA (16:46)
[2018-08-15] MEDS ORDERED: Iohexol 300 100 ML IJ ONE (17:03)
[2018-08-15] MEDS ORDERED: Sodium Chloride 0.9% 50 ML IV ONE (17:04)
[2018-08-15] MEDS ORDERED: Piperacillin/Tazobact 3.375 gm Inj IVPB STA (18:24)
[2018-08-15] MEDS ORDERED: Oxycodone/Acetaminophen 5/325 mg Tab PO PRN (18:46)
[2018-08-15] MEDS ORDERED: Piperacillin/Tazobact 3.375 gm Inj IVPB ONE (18:53)
[2018-08-15] MEDS ORDERED: Vancomycin 1 g Inj ONE (18:54)
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
[2018-08-15 19:35] LABS: URINE BILIRUBIN NEGATIVE (NEGATIVE); URINE BLOOD SMALL (NEGATIVE); URINE CLARITY CLEAR (Clear); URINE COLOR STRAW (YELLOW); URINE GLUCOSE (UA) >=500 mg/dL (Normal); URINE LEUKOCYTE ESTERASE NEG Leu/uL (Negative); URINE PROTEIN NEGATIVE (NEGATIVE); URINE UROBILINOGEN 0.2-1.0 mg/dL (0.2-1.0)
[2018-08-15 19:58] LABS: BARBITURATES, UR NEGATIVE (NEGATIVE); BENZODIAZEPINES, UR NEGATIVE (NEGATIVE); OPIATES, UR NEGATIVE (NEGATIVE); PHENCYCLIDINE, UR NEGATIVE (NEGATIVE)
[2018-08-15] MEDS ORDERED: QUEtiapine 300 MG TABLET PO ONE (21:50)
[2018-08-15] MEDS ORDERED: QUETIAPINE FUMARATE PO SCH (22:00)
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
[2018-08-15] MEDS: Insulin Lispro (humaLOG) 100 Units/ml Inj SC SCH (23:32)
[2018-08-16] MEDS: Piperacillin/Tazobact 3.375 GM in Sodium Chloride 0.9% 100 ML IVPB SCH ×5 (00:44→20:55)
[2018-08-16 06:15] LABS: BASO # 0.1 K/uL (0.0-0.2); EOS # 0.2 K/uL (0.0-0.7); EOS % 1.6 % (0.0-4.0); HEMOGLOBIN 12.1 g/dL (12.0-18.0); LYMPH # 3.4 K/uL (1.0-4.3); LYMPH % 32.8 % (20.0-40.0); MEAN CELL VOLUME 82.6 fl (80.0-94.0); MEAN CORPUSCULAR HEMOGLOBIN 26.7 pg (27.0-31.0); MEAN CORPUSCULAR HGB CONC 32.3 g/dL (33.0-37.0); MEAN PLATELET VOLUME 8.7 fl (7.2-11.7); MONO # 0.8 K/uL (0.0-0.8); MONO % 8.2 % (0.0-10.0); NEUT # 5.8 K/uL (1.8-7.0); NEUT % 56.4 % (50.0-75.0); RBC 4.54 Mil/uL (4.40-5.90); RED CELL DISTRIBUTION WIDTH 15.8 % (11.5-14.5); WHITE BLOOD COUNT 10.3 K/uL (4.8-10.8)
[2018-08-16 06:34] LABS: BLOOD UREA NITROGEN 17 mg/dl (9-20); GFR NON-AFRICAN AMERICAN > 60
[2018-08-16] MEDS: Insulin Lispro (humaLOG) 100 Units/ml Inj SC SCH ×6 (07:39→23:26)
--- NOTE | 2018-08-16 08:57 | CP.PCM.PN ---
Addendum entered and electronically signed by Adeola Cm MD 14:13: Patient cell phone number : [phone]. Original Note: <Adeola Cm - Last Filed: 08/16/18 12:40> Subjective - Date & Time of Evaluation Date of Evaluation: 08/16/18 Time of Evaluation: 08:57 - Subjective Subjective: Patient seen and examined at bedside with Dr. Yee. He reports that he has perirectal pain, 3/10 this morning. He has good appetite and was able to tolerate his breakfast. Social history was obtained during interview where he endorsed that he lives by himself and is able to walk multiple blocks per day and not become short of breath. He has been a smoker and currently smokes 6 cigarettes per day. Denies fevers, chills, chest pain, shortness of breath, nausea, vomiting, abdominal pain, diarrhea, constipation, melena and hematochezia. Objective - Vital Signs/Intake and Output Vital Signs (last 24 hours): Temp Pulse Resp BP Pulse Ox 97.7 F 74 19 147/87 97 08/16/18 07:54 08/16/18 07:54 08/16/18 07:54 08/16/18 07:54 08/16/18 07:54 - Medications Medications: Current Medications Acetaminophen (Tylenol 325mg Tab) 650 mg PO Q6 PRN PRN Reason: Pain, Mild (1-3) Acetaminophen (Tylenol 325mg Tab) 650 mg PO Q6 PRN PRN Reason: Fever >100.4 F Alprazolam (Xanax) 2 mg PO Q6 PRN PRN Reason: Anxiety Docusate Sodium (Colace) 100 mg PO BID [facility] Enoxaparin Sodium (Lovenox) 40 mg SC DAILY [facility] PRN Reason: Protocol Gemfibrozil (Lopid) 600 mg PO Q12 [facility] Last Admin: 08/15/18 20:58 Dose: 600 mg Vancomycin HCl 1 gm/ Sodium (Chloride) 250 mls @ 166.667 mls/hr IVPB Q12 [facility] PRN Reason: Protocol Last Admin: 08/15/18 20:59 Dose: Not Given Piperacillin Sod/Tazobactam (Sod 3.375 gm/ Sodium Chloride) 100 mls @ 100 mls/ hr IVPB Q6H [facility] PRN Reason: Protocol Last Admin: 08/16/18 07:35 Dose: 100 mls/hr Insulin Human Lispro (Humalog) 0 units SC ACHS [facility] PRN Reason: Protocol Last Admin: 08/16/18 07:39 Dose: 1 units Ketorolac Tromethamine (Toradol) 30 mg IVP Q6 PRN PRN Reason: Pain, severe (8-10) Last Admin: 08/15/18 21:03 Dose: 30 mg Ondansetron HCl (Zofran Inj) 4 mg IVP Q6 PRN PRN Reason: Nausea/Vomiting Oxycodone/Acetaminophen (Percocet 5/325 Mg Tab) 1 tab PO Q4 PRN PRN Reason: Pain, moderate (4-7) Stop: 08/18/18 18:47 Pantoprazole Sodium (Protonix Ec Tab) 40 mg PO DAILY [facility] - Labs Labs: 08/16/18 04:28 08/16/18 04:28 - Constitutional Appears: Well, Non-toxic, No Acute Distress - Respiratory Exam Respiratory Exam: Clear to Ausculation Bilateral, NORMAL BREATHING PATTERN. absent: Rales, Rhonchi, Wheezes - Cardiovascular Exam Cardiovascular Exam: REGULAR RHYTHM, RRR, +S1, +S2. absent: Clicks, Diastolic murmur, Gallop, JVD, Rubs, +S4, Murmur - GI/Abdominal Exam GI & Abdominal Exam: Soft, Normal Bowel Sounds. absent: Distended, Firm, Guarding, Tenderness, Hernia, Rebound - Rectal Exam Rectal Exam: absent: Hemorrhoids Additional comments: Performed with [employer] Service Sales Representative in room. Indurated tissue- on right side; tender to palpation. Non-erythematous or, not exquisitely warm to touch. - Extremities Exam Extremities Exam: Normal Inspection. absent: Calf Tenderness, Joint Swelling, Pedal Edema - Neurological Exam Neurological Exam: Alert, Awake - Psychiatric Exam Psychiatric exam: Normal Affect, Normal Mood - Skin Skin Exam: Dry, Intact, Normal Color, Warm Assessment and Plan - Assessment and Plan (Free Text) Assessment: 58 y/o male with PMH DM type II , Dyslipidemia, drug abuse,anxiety and depression presented to ER complaining of 1 day history of pain around the perirectal area with sitting . Previous history of perirectal abscess: May 2018 s/p I&D by surgery and received IV and Po antibiotics. Cultures from last admission were positive for E. Coli and Group C Streptococcus. CT abd and pelvis demonstrated fluid collection suspicious for perianal abscess 1.4 x 1.2 x 11 cm with cellullitis greater on the right. Patient continues to be afebrile with a white count of 10.3 (normal). Plan: 1. Perianal abscess with cellulitis -Place patient under observation in Med / surg -Surgery consultation appreciated. -F/U blood cx -Surgery recommendations- Vanco 166.667 Q12H day 1 and Zosyn IV 3.375 gm Q6H day 1. -pain management PRN - Patient was counseled on keeping naheed-rectal area clean. 2. DM type II -Accuchecks ACHS with lispro coverage -Hold metformin at least for 48 hours since patient received Iv contrast -Continue IV hydration -F/U Check Hga1c 3. Dyslipidemia - on lopid 4. Depression with anxiety - On seroquel and Xanax 5. Drug abuse / tobacco use disorder - Last cocaine use was 08/15/18 at night- snorted. - send UDOA 6. DVT prophylaxis - Continue SCD and lovenox <Pita Yee - Last Filed: 08/16/18 15:48> Objective - Vital Signs/Intake and Output Vital Signs (last 24 hours): Temp Pulse Resp BP Pulse Ox 97.7 F 74 19 147/87 97 08/16/18 07:54 08/16/18 07:54 08/16/18 07:54 08/16/18 07:54 08/16/18 07:54 - Medications Medications: Current Medications Acetaminophen (Tylenol 325mg Tab) 650 mg PO Q6 PRN PRN Reason: Pain, Mild (1-3) Acetaminophen (Tylenol 325mg Tab) 650 mg PO Q6 PRN PRN Reason: Fever >100.4 F Alprazolam (Xanax) 2 mg PO Q6 PRN PRN Reason: Anxiety Docusate Sodium (Colace) 100 mg PO BID [facility] Last Admin: 08/16/18 10:24 Dose: 100 mg Enoxaparin Sodium (Lovenox) 40 mg SC DAILY [facility] PRN Reason: Protocol Last Admin: 08/16/18 09:46 Dose: Not Given Gemfibrozil (Lopid) 600 mg PO Q12 [facility] Last Admin: 08/16/18 10:23 Dose: 600 mg Vancomycin HCl 1 gm/ Sodium (Chloride) 250 mls @ 166.667 mls/hr IVPB Q12 [facility] PRN Reason: Protocol Last Admin: 08/16/18 10:24 Dose: 166.667 mls/hr Piperacillin Sod/Tazobactam (Sod 3.375 gm/ Sodium Chloride) 100 mls @ 100 mls/ hr IVPB Q6H [facility] PRN Reason: Protocol Last Admin: 08/16/18 13:22 Dose: 100 mls/hr Insulin Human Lispro (Humalog) 0 units SC ACHS [facility] PRN Reason: Protocol Last Admin: 08/16/18 11:26 Dose: Not Given Ketorolac Tromethamine (Toradol) 30 mg IVP Q6 PRN PRN Reason: Pain, severe (8-10) Last Admin: 08/15/18 21:03 Dose: 30 mg Ondansetron HCl (Zofran Inj) 4 mg IVP Q6 PRN PRN Reason: Nausea/Vomiting Oxycodone/Acetaminophen (Percocet 5/325 Mg Tab) 1 tab PO Q4 PRN PRN Reason: Pain, moderate (4-7) Stop: 08/18/18 18:47 Pantoprazole Sodium (Protonix Ec Tab) 40 mg PO DAILY [facility] Last Admin: 08/16/18 10:24 Dose: 40 mg - Labs Labs: 08/16/18 04:28 08/16/18 04:28 Attending/Attestation - Attestation I have personally seen and examined this patient.: Yes I have fully participated in the care of the patient.: Yes I have reviewed all pertinent clinical information, including history, physical exam and plan: Yes Notes (Text): Perianal abscess - cont IV Zosyn and Vanco - Surgery consulted- felt that area is mostly induration, no palpable abscess - CT of Pelvis: small perianal abscess ( 1.4 x 1.2 ) with phlegmon -
[2018-08-16] MEDS: Enoxaparin 40 mg Syringe SC SCH ×2 (09:46→10:23)
--- NOTE | 2018-08-16 09:54 | CT ---
Date of service: 08/15/2018 PROCEDURE: CT Pelvis with contrast HISTORY: assess naheed-rectal abscess COMPARISON: None available. TECHNIQUE: Contiguous axial images of the pelvis with contrast. Coronal and sagittal reformats generated. Contrast dose: 95 Radiation dose: Total exam DLP = 246 mGy-cm. This CT exam was performed using one or more of the following dose reduction techniques: Automated exposure control, adjustment of the mA and/or kV according to patient size, and/or use of iterative reconstruction technique. FINDINGS: BLADDER: Unremarkable. No mass. REPRODUCTIVE ORGANS: Unremarkable. VISUALIZED BOWEL: There is suggestion of some very mild subtle rectal thickening with additional thickening in the anus and perianal region. There is a small subtle area of low density seen posterior to the anus measuring 1.4 x 1.2 x 1 centimeter. This reflects small perianal abscess. Additional mild perianal inflammatory changes are seen in the subcutaneous soft tissues and medial gluteal region. No presacral masses are identified and no presacral inflammatory changes are noted. Remainder of the bowel is unremarkable. Visualized appendix is within normal limits. PERITONEUM: Unremarkable, as visualized. No free fluid. No free air. LYMPH NODES: A few tiny pelvic lymph nodes are noted. VASCULATURE: Unremarkable. BONES: No fracture or focal lesion. Mild degenerative changes are seen in the lower lumbar spine. No lytic process is seen. OTHER FINDINGS: None. IMPRESSION: Small posterior perianal abscess with adjacent inflammatory changes and phlegmon extending into the gluteal regions, greater on the right. This agrees with preliminary report.
[2018-08-16] MEDS: Pantoprazole 40 mg EC Tab PO SCH (10:24)
[2018-08-17 00:42] VITALS: RESP 19
[2018-08-17] MEDS: Piperacillin/Tazobact 3.375 GM in Sodium Chloride 0.9% 100 ML IVPB SCH ×2 (03:13→09:15)
[2018-08-17 06:31] LABS: HEMOGLOBIN 12.7 g/dL (12.0-18.0); MEAN CELL VOLUME 82.3 fl (80.0-94.0); MEAN CORPUSCULAR HEMOGLOBIN 27.1 pg (27.0-31.0); MEAN CORPUSCULAR HGB CONC 32.9 g/dL (33.0-37.0); RBC 4.68 Mil/uL (4.40-5.90); RED CELL DISTRIBUTION WIDTH 15.2 % (11.5-14.5); WHITE BLOOD COUNT 8.6 K/uL (4.8-10.8)
[2018-08-17 06:39] LABS: BLOOD UREA NITROGEN 12 mg/dl (9-20); CALCIUM 9.3 mg/dL (8.4-10.2); GFR NON-AFRICAN AMERICAN > 60
--- NOTE | 2018-08-17 07:34 | CP.PCM.PN ---
Subjective - Date & Time of Evaluation Date of Evaluation: 08/17/18 Time of Evaluation: 07:34 Objective - Vital Signs/Intake and Output Vital Signs (last 24 hours): Temp Pulse Resp BP Pulse Ox 98.4 F 76 19 163/93 H 98 08/17/18 00:00 08/17/18 00:00 08/17/18 00:00 08/17/18 00:00 08/17/18 00:00 - Medications Medications: Current Medications Acetaminophen (Tylenol 325mg Tab) 650 mg PO Q6 PRN PRN Reason: Pain, Mild (1-3) Acetaminophen (Tylenol 325mg Tab) 650 mg PO Q6 PRN PRN Reason: Fever >100.4 F Alprazolam (Xanax) 2 mg PO Q6 PRN PRN Reason: Anxiety Docusate Sodium (Colace) 100 mg PO BID [facility] Last Admin: 08/16/18 17:43 Dose: 100 mg Enoxaparin Sodium (Lovenox) 40 mg SC DAILY [facility] PRN Reason: Protocol Last Admin: 08/16/18 09:46 Dose: Not Given Gemfibrozil (Lopid) 600 mg PO Q12 [facility] Last Admin: 08/16/18 20:56 Dose: 600 mg Vancomycin HCl 1 gm/ Sodium (Chloride) 250 mls @ 166.667 mls/hr IVPB Q12 [facility] PRN Reason: Protocol Last Admin: 08/16/18 22:11 Dose: 166.667 mls/hr Piperacillin Sod/Tazobactam (Sod 3.375 gm/ Sodium Chloride) 100 mls @ 100 mls/ hr IVPB 0300,0900,1500,2100 [facility] PRN Reason: Protocol Last Admin: 08/17/18 03:13 Dose: 100 mls/hr Insulin Human Lispro (Humalog) 0 units SC ACHS [facility] PRN Reason: Protocol Last Admin: 08/16/18 23:26 Dose: 3 units Ketorolac Tromethamine (Toradol) 30 mg IVP Q6 PRN PRN Reason: Pain, severe (8-10) Last Admin: 08/15/18 21:03 Dose: 30 mg Ondansetron HCl (Zofran Inj) 4 mg IVP Q6 PRN PRN Reason: Nausea/Vomiting Oxycodone/Acetaminophen (Percocet 5/325 Mg Tab) 1 tab PO Q4 PRN PRN Reason: Pain, moderate (4-7) Stop: 08/18/18 18:47 Pantoprazole Sodium (Protonix Ec Tab) 40 mg PO DAILY [facility] Last Admin: 08/16/18 10:24 Dose: 40 mg Saccharomyces Boulardii (Florastor) 250 mg PO BID [facility] - Labs Labs: 08/17/18 05:35 08/17/18 05:35
[2018-08-17 07:54] VITALS: BP 160/89; PULSE 69; TEMP 98; O2SAT 97
[2018-08-17 08:21] LABS: PARTIAL THROMBOPLASTIN TIME 33.1 Seconds (25.6-37.1)
--- NOTE | 2018-08-17 08:59 | CP.PCM.PN ---
Subjective - Date & Time of Evaluation Date of Evaluation: 08/17/18 Time of Evaluation: 08:57 - Subjective Subjective: Surgery: Dr. Hanson Pt seen and examined. No acute overnight events. States he feels ok but still admits to pain around his perirectal region. He denies any other complaints, denies N/V, fevers/chills. Objective - Vital Signs/Intake and Output Vital Signs (last 24 hours): Temp Pulse Resp BP Pulse Ox 98.0 F 69 19 160/89 H 97 08/17/18 07:53 08/17/18 07:53 08/17/18 07:53 08/17/18 07:53 08/17/18 07:53 - Medications Medications: Current Medications Acetaminophen (Tylenol 325mg Tab) 650 mg PO Q6 PRN PRN Reason: Pain, Mild (1-3) Acetaminophen (Tylenol 325mg Tab) 650 mg PO Q6 PRN PRN Reason: Fever >100.4 F Alprazolam (Xanax) 2 mg PO Q6 PRN PRN Reason: Anxiety Docusate Sodium (Colace) 100 mg PO BID [facility] Last Admin: 08/16/18 17:43 Dose: 100 mg Enoxaparin Sodium (Lovenox) 40 mg SC DAILY [facility] PRN Reason: Protocol Last Admin: 08/16/18 09:46 Dose: Not Given Gemfibrozil (Lopid) 600 mg PO Q12 [facility] Last Admin: 08/16/18 20:56 Dose: 600 mg Vancomycin HCl 1 gm/ Sodium (Chloride) 250 mls @ 166.667 mls/hr IVPB Q12 [facility] PRN Reason: Protocol Last Admin: 08/16/18 22:11 Dose: 166.667 mls/hr Piperacillin Sod/Tazobactam (Sod 3.375 gm/ Sodium Chloride) 100 mls @ 100 mls/ hr IVPB 0300,0900,1500,2100 [facility] PRN Reason: Protocol Last Admin: 08/17/18 03:13 Dose: 100 mls/hr Insulin Human Lispro (Humalog) 0 units SC ACHS [facility] PRN Reason: Protocol Last Admin: 08/16/18 23:26 Dose: 3 units Ketorolac Tromethamine (Toradol) 30 mg IVP Q6 PRN PRN Reason: Pain, severe (8-10) Last Admin: 08/15/18 21:03 Dose: 30 mg Ondansetron HCl (Zofran Inj) 4 mg IVP Q6 PRN PRN Reason: Nausea/Vomiting Oxycodone/Acetaminophen (Percocet 5/325 Mg Tab) 1 tab PO Q4 PRN PRN Reason: Pain, moderate (4-7) Stop: 08/18/18 18:47 Pantoprazole Sodium (Protonix Ec Tab) 40 mg PO DAILY [facility] Last Admin: 08/16/18 10:24 Dose: 40 mg Saccharomyces Boulardii (Florastor) 250 mg PO BID [facility] - Labs Labs: 08/17/18 05:35 08/17/18 05:35 PT 11.0 Seconds (9.8-13.1) 08/17/18 07:58 INR 1.0 08/17/18 07:58 APTT 33.1 Seconds (25.6-37.1) 08/17/18 07:58 - Constitutional Appears: Well, No Acute Distress - Head Exam Head Exam: ATRAUMATIC, NORMOCEPHALIC - Eye Exam Eye Exam: Normal appearance - ENT Exam ENT Exam: Mucous Membranes Moist - Cardiovascular Exam Cardiovascular Exam: RRR - GI/Abdominal Exam GI & Abdominal Exam: Soft. absent: Tenderness - Rectal Exam Additional comments: small 1x1 cm of induration on L gluteus/perirectal region, no erythema or active drainage noted - Extremities Exam Extremities Exam: absent: Calf Tenderness - Neurological Exam Neurological Exam: Alert, Awake, Oriented x3 - Skin Skin Exam: Dry, Warm Assessment and Plan - Assessment and Plan (Free Text) Assessment: 58M with perirectal pain, r/o abscess Plan: - cont abx - will discuss possible OR drainage with Dr. Valentin Wilkinson
[2018-08-17] MEDS ORDERED: Saccharomyces Boulardi 250 mg Cap PO SCH (09:00)
[2018-08-17] MEDS: Pantoprazole 40 mg EC Tab PO SCH (09:13)
[2018-08-17] MEDS: Enoxaparin 40 mg Syringe SC SCH ×2 (09:13→09:19)
[2018-08-17] MEDS: Insulin Lispro (humaLOG) 100 Units/ml Inj SC SCH ×2 (09:14→12:19)
--- NOTE | 2018-08-17 11:50 | CP.PCM.PN ---
Subjective - Date & Time of Evaluation Date of Evaluation: 08/17/18 Time of Evaluation: 07:30 - Subjective Subjective: Patient seen and examined at bedside with Dr. Yee. He is resting comfortably in his bed. He reports he had a bowel movement last night, Soft and and formed, no blood seen. He reports his naheed-rectal pain at a 7/10 today. He denies chest pain, shortness of breath, melena, hematochezia, nausea, vomiting and abdominal pain. Objective - Vital Signs/Intake and Output Vital Signs (last 24 hours): Temp Pulse Resp BP Pulse Ox 98.0 F 69 19 160/89 H 97 08/17/18 07:53 08/17/18 07:53 08/17/18 07:53 08/17/18 07:53 08/17/18 07:53 - Medications Medications: Current Medications Acetaminophen (Tylenol 325mg Tab) 650 mg PO Q6 PRN PRN Reason: Pain, Mild (1-3) Acetaminophen (Tylenol 325mg Tab) 650 mg PO Q6 PRN PRN Reason: Fever >100.4 F Alprazolam (Xanax) 2 mg PO Q6 PRN PRN Reason: Anxiety Docusate Sodium (Colace) 100 mg PO BID [facility] Last Admin: 08/17/18 09:19 Dose: Not Given Enoxaparin Sodium (Lovenox) 40 mg SC DAILY [facility] PRN Reason: Protocol Last Admin: 08/17/18 09:19 Dose: Not Given Gemfibrozil (Lopid) 600 mg PO Q12 [facility] Last Admin: 08/17/18 09:13 Dose: 600 mg Vancomycin HCl 1 gm/ Sodium (Chloride) 250 mls @ 166.667 mls/hr IVPB Q12 [facility] PRN Reason: Protocol Last Admin: 08/17/18 09:14 Dose: 166.667 mls/hr Piperacillin Sod/Tazobactam (Sod 3.375 gm/ Sodium Chloride) 100 mls @ 100 mls/ hr IVPB 0300,0900,1500,2100 [facility] PRN Reason: Protocol Last Admin: 08/17/18 09:15 Dose: 100 mls/hr Insulin Human Lispro (Humalog) 0 units SC ACHS [facility] PRN Reason: Protocol Last Admin: 08/17/18 09:14 Dose: Not Given Ketorolac Tromethamine (Toradol) 30 mg IVP Q6 PRN PRN Reason: Pain, severe (8-10) Last Admin: 08/15/18 21:03 Dose: 30 mg Ondansetron HCl (Zofran Inj) 4 mg IVP Q6 PRN PRN Reason: Nausea/Vomiting Oxycodone/Acetaminophen (Percocet 5/325 Mg Tab) 1 tab PO Q4 PRN PRN Reason: Pain, moderate (4-7) Stop: 08/18/18 18:47 Pantoprazole Sodium (Protonix Ec Tab) 40 mg PO DAILY [facility] Last Admin: 08/17/18 09:13 Dose: 40 mg Saccharomyces Boulardii (Florastor) 250 mg PO BID [facility] Last Admin: 08/17/18 09:14 Dose: 250 mg - Labs Labs: 08/17/18 05:35 08/17/18 05:35 PT 11.0 Seconds (9.8-13.1) 08/17/18 07:58 INR 1.0 08/17/18 07:58 APTT 33.1 Seconds (25.6-37.1) 08/17/18 07:58 - Constitutional Appears: Well, Non-toxic, No Acute Distress - Respiratory Exam Respiratory Exam: Clear to Ausculation Bilateral, NORMAL BREATHING PATTERN. absent: Decreased Breath Sounds, Rales, Rhonchi, Wheezes, Respiratory Distress - Cardiovascular Exam Cardiovascular Exam: REGULAR RHYTHM, RRR, +S1, +S2. absent: Diastolic murmur, Gallop, JVD, Rubs, Murmur - GI/Abdominal Exam GI & Abdominal Exam: Soft, Normal Bowel Sounds. absent: Distended, Firm, Guarding, Rigid, Tenderness, Rebound - Rectal Exam Rectal Exam: NORMAL INSPECTION. absent: Bloody Stool, Hemorrhoids Additional comments: Indurated right naheed-rectal abscess, tender to palpation. - Extremities Exam Extremities Exam: Normal Inspection. absent: Calf Tenderness, Joint Swelling, Pedal Edema - Neurological Exam Neurological Exam: Alert, Awake, Oriented x3 - Psychiatric Exam Psychiatric exam: Normal Affect, Normal Mood - Skin Skin Exam: Dry, Intact, Normal Color, Warm Assessment and Plan - Assessment and Plan (Free Text) Assessment: 58 y/o male with PMH DM type II , Dyslipidemia, drug abuse,anxiety and depression presented to ER complaining of 1 day history of pain around the perirectal area with sitting . Previous history of naheed-rectal abscess: May 2018 s/p I&D by surgery and received IV and Po antibiotics. Cultures from last admission were positive for E. Coli and Group C Streptococcus. CT abd and pelvis demonstrated fluid collection suspicious for perianal abscess 1.4 x 1.2 x 11 cm with cellullitis greater on the right. Patient continues to be afebrile with a white count of 8.6 (normal). Plan: 1. Perianal abscess with cellulitis -Surgery consultation appreciated- possible I and D today. -Blood culture no growth to date- continue to follow. - Surgery recommendations- Vanco 1G Q12H day 2 and Zosyn IV 3.375 gm Q6H day 3. - pain management PRN 2. DM type II -Accuchecks ACHS with lispro coverage -Hold metformin at least for 48 hours since patient received Iv contrast -Continue IV hydration - Hga1c - 8.1 3. Dyslipidemia - on lopid 4. Depression with anxiety - On seroquel and Xanax 5. Drug abuse / tobacco use disorder - Last cocaine use was 08/15/18 at night- snorted. - send UDOA 6. DVT prophylaxis - Continue SCD and lovenox
--- NOTE | 2018-08-17 13:10 | CP.PCM.DIS ---
Provider - Provider Date of Admission: 08/15/18 18:28 Attending physician: Susan Briseno MD Primary care physician: None Consults: Surgery consults Time Spent in preparation of Discharge (in minutes): 15 Hospital Course - Lab Results Lab Results: Micro Results 08/15/18 19:30 Blood-Venous Blood Culture - Preliminary NO GROWTH AFTER 24 HOURS Most Recent Lab Values WBC 8.6 K/uL (4.8-10.8) 08/17/18 05:35 RBC 4.68 Mil/uL (4.40-5.90) 08/17/18 05:35 Hgb 12.7 g/dL (12.0-18.0) 08/17/18 05:35 Hct 38.5 % (35.0-51.0) 08/17/18 05:35 MCV 82.3 fl (80.0-94.0) 08/17/18 05:35 MCH 27.1 pg (27.0-31.0) 08/17/18 05:35 MCHC 32.9 g/dL (33.0-37.0) L 08/17/18 05:35 RDW 15.2 % (11.5-14.5) H 08/17/18 05:35 Plt Count 309 K/uL (130-400) 08/17/18 05:35 MPV 8.7 fl (7.2-11.7) 08/16/18 04:28 Neut % (Auto) 56.4 % (50.0-75.0) 08/16/18 04:28 Lymph % (Auto) 32.8 % (20.0-40.0) 08/16/18 04:28 [place] % (Auto) 8.2 % (0.0-10.0) 08/16/18 04:28 Eos % (Auto) 1.6 % (0.0-4.0) 08/16/18 04:28 Baso % (Auto) 1.0 % (0.0-2.0) 08/16/18 04:28 Neut # (Auto) 5.8 K/uL (1.8-7.0) 08/16/18 04:28 Lymph # (Auto) 3.4 K/uL (1.0-4.3) 08/16/18 04:28 [place] # (Auto) 0.8 K/uL (0.0-0.8) 08/16/18 04:28 Eos # (Auto) 0.2 K/uL (0.0-0.7) 08/16/18 04:28 Baso # (Auto) 0.1 K/uL (0.0-0.2) 08/16/18 04:28 PT 11.0 Seconds (9.8-13.1) 08/17/18 07:58 INR 1.0 08/17/18 07:58 APTT 33.1 Seconds (25.6-37.1) 08/17/18 07:58 Sodium 137 mmol/l (132-148) 08/17/18 05:35 Potassium 4.0 MMOL/L (3.6-5.0) 08/17/18 05:35 Chloride 101 mmol/L (98-107) 08/17/18 05:35 Carbon Dioxide 26 mmol/L (22-30) 08/17/18 05:35 Anion Gap 14 (10-20) 08/17/18 05:35 BUN 12 mg/dl (9-20) 08/17/18 05:35 Creatinine 0.9 mg/dl (0.8-1.5) 08/17/18 05:35 Est GFR ( Amer) > 60 08/17/18 05:35 Est GFR (Non-Af Amer) > 60 08/17/18 05:35 POC Glucose (mg/dL) 167 mg/dL (65-110) H 08/17/18 11:24 Random Glucose 212 mg/dL (75-110) H 08/17/18 05:35 Hemoglobin A1c 8.1 % (4.2-6.5) H D 08/15/18 19:30 Calcium 9.3 mg/dL (8.4-10.2) 08/17/18 05:35 Total Bilirubin 0.5 mg/dl (0.2-1.3) 08/15/18 15:31 AST 39 U/L (17-59) 08/15/18 15:31 ALT 25 U/L (21-72) 08/15/18 15:31 Alkaline Phosphatase 147 U/L (38-126) H D 08/15/18 15:31 Total Protein 8.4 G/DL (6.3-8.2) H 08/15/18 15: Albumin 4.3 g/dL (3.5-5.0) 08/15/18 15: Globulin 4.1 gm/dL (2.2-3.9) H 08/15/18 15: Albumin/Globulin Ratio 1.1 (1.0-2.1) 08/15/18 15: Urine Color Straw (YELLOW) 08/15/18 19: Urine Clarity Clear (Clear) 08/15/18 19: Urine pH 5.0 (5.0-8.0) 08/15/18 19: Ur Specific [place] > 1.060 (1.003-1.030) H 08/15/18 19: Urine Protein Negative mg/dL (NEGATIVE) 08/15/18 19: Urine Glucose (UA) >=500 mg/dL (Normal) 08/15/18 19: Urine Ketones Negative mg/dL (NEGATIVE) 08/15/18 19: Urine Blood Small (NEGATIVE) 08/15/18: Urine Nitrate Negative (NEGATIVE) 08/15/18 19: Urine Bilirubin Negative (NEGATIVE) 08/15/18: Urine Urobilinogen 0.2-1.0 mg/dL (0.2-1.0) 08/15/18 19: Ur Leukocyte Esterase Neg Ale/uL (Negative) 08/15/18 19: Urine RBC (Auto) 2 /hpf (0-3) 08/15/18 19:27 Urine Microscopic WBC < 1 /hpf (0-5) 08/15/18 19:27 Urine Opiates Screen Negative (NEGATIVE) 08/15/18 19:30 Urine Methadone Screen Negative (NEGATIVE) 08/15/18 19:30 Ur Barbiturates Screen Negative (NEGATIVE) 08/15/18 19:30 Ur Phencyclidine Scrn Negative (NEGATIVE) 08/15/18 19:30 Ur Amphetamines Screen Negative (NEGATIVE) 08/15/18 19:30 U Benzodiazepines Scrn Negative (NEGATIVE) 08/15/18 19:30 U Oth Cocaine Metabols Positive (NEGATIVE) H 08/15/18 19:30 U Cannabinoids Screen Negative (NEGATIVE) 08/15/18 19:30 - Hospital Course Hospital Course: 58 y/o male with PMH DM type II , Dyslipidemia, drug abuse,anxiety and depression presented to ER complaining of 1 day history of pain around the perirectal area with sitting . Patient gave history of perirectal abscess in May 2018 for which he underwent I&D by surgery and received IV and Po antibiotics. Cultures from last admission were positive for E. Coli and Group C Streptococcus. Patient denied any fever , chills, nausea, vomiting , constipation , diarrhea, blood in the stool, abdominal pain . Denied any chest pain , sob, palpitations, PND, orthopnea, cough or upper respiratory symptoms. CT abdomen and pelvis showed fluid collection suspicious for perianal abscess 1.4 x 1.2 x 11 cm with cellullitis greater on the right. Patient was placed under observation in med/surg / surgery was cosnulted and he was started on Vanco and Zosyn Iv and pain management Patient clinically improved . He remained afebrile with normal WBC count . Tenderness and swelling to perictal area resolved . Will discharge patient home in stable condition with Bactrim DS for 7 days, Percoset PRN for pain and follow up with surgery clinic. 1. Perianal abscess with cellulitis Placed patient under observation in Med / surg Surgery consulted Started Vanco and Zosyn IV as per surgery recommendations while in hospital Patuient clinically improved Will d/c home on PO Bactrim and percoset PRN for pain 2. DM type II Accuchecks ACHS with lispro coverage held metformin for 48 hours since patient received Iv contrast can resume as outpatient 3. Dyslipidemia on lopid 4. Depression with anxiety on seroquel and Xanax 5. Drug abuse / tobacco use disorder admitted to using cocaine 6. DVT prophylaxis SCD and lovenox Discharge Exam - Head Exam Head Exam: ATRAUMATIC, NORMOCEPHALIC - Eye Exam Eye Exam: EOMI, Normal appearance, PERRL Pupil Exam: NORMAL ACCOMODATION - ENT Exam ENT Exam: Mucous Membranes Moist, Normal Exam - Neck Exam Neck exam: Full Rom, Normal Inspection - Respiratory Exam Respiratory Exam: Clear to PA & Lateral, NORMAL BREATHING PATTERN. absent: Rales, Rhonchi, Wheezes - Cardiovascular Exam Cardiovascular Exam: REGULAR RHYTHM, RRR, +S1, +S2. absent: JVD - GI/Abdominal Exam GI & Abdominal Exam: Normal Bowel Sounds, Soft. absent: Distended, Guarding, Rebound, Tenderness - Rectal Exam Rectal Exam: Deferred - Extremities Exam Extremities exam: normal capillary refill, normal inspection, pedal pulses present - Back Exam Back exam: NORMAL INSPECTION - Neurological Exam Neurological exam: Alert, CN II-XII Intact, Oriented x3, Reflexes Normal - Psychiatric Exam Psychiatric exam: Normal Affect, Normal Mood - Skin Skin Exam: Dry, Intact, Normal Color, Warm Discharge Plan - Discharge Medications Prescriptions: oxyCODONE/Acetaminophen [Percocet 5/325 mg Tab] 1 tab PO Q8 PRN #20 tab PRN Reason: Pain, Severe (8-10) Sulfamethoxazole/Trimethoprim [Bactrim DS 800 mg-160 mg] 1 tab PO Q12 #14 tab - Follow Up Plan Condition: STABLE Disposition: HOME/ ROUTINE Patient education suggested?: Yes Instructions: Abscess (GEN) Additional Instructions: follow up with your primary md 1 week Referrals: Austyn Hanson MD [Staff Provider] - Melecio Benjamin MD [Staff Provider] -
== END 2018-08-17 12:51 | disposition home or self-care (01) ==
LOC: H.ER 14:57 → H.ERHOLD 18:28 → INTOOBSV 18:28 → H.MEDSURG1 20:30
PROVIDERS: ADMIT Hospitalist; ATTEND Hospitalist
DX: K61.0 Anal abscess (principal); E11.9 Type 2 diabetes mellitus without complications; E78.5 Hyperlipidemia, unspecified; F14.10 Cocaine abuse, uncomplicated; F17.210 Nicotine dependence, cigarettes, uncomplicated; F20.9 Schizophrenia, unspecified; F41.8 Other specified anxiety disorders; L03.315 Cellulitis of perineum; F32.9 Major depressive disorder, single episode, unspecified; F41.9 Anxiety disorder, unspecified; M19.90 Unspecified osteoarthritis, unspecified site; Z79.84 Long term (current) use of oral hypoglycemic drugs
CPT/HCPCS: 36415; 72193; 80048; 80053; 80324; 80345; 80346; 80349; 80353; 80358; 80361; 81003; 82948; 83036; 83992; 85025; 85027; 85610; 85730; 87040; 96360; 96365; 96372; 99284; G0378; J1885; J2543; J7030; Q9967

== ENCOUNTER 2018-10-04 04:15 | Emergency (ER) | payer MEDICAID ==
[2018-10-04 04:15] VITALS: BMI 27.4
[2018-10-04] MEDS ORDERED: PROPARACAINE/FLUORESCEIN SOD 100 DROP/5 ML BOTTLE OD STA (04:50)
[2018-10-04] MEDS ORDERED: Tdap Vaccine 0.5 ml Vial (10-64 yrs) IM ONE ×2 (05:04→06:29)
[2018-10-04] MEDS ORDERED: PROPARACAINE/FLUORESCEIN SOD 100 DROP/5 ML BOTTLE ONE (05:05)
[2018-10-04] MEDS ORDERED: Tobramycin 0.3% OPHT SOLN OD ONE (05:15)
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
[2018-10-04 07:13] VITALS: BP 162/101; PULSE 72; RESP 17; TEMP 98.4
[2018-10-05 01:34] VITALS: O2SAT 99
== END 2018-10-04 07:07 | disposition home or self-care (01) ==
LOC: H.ER 04:15
DX: S05.00XA Injury of conjunctiva and corneal abrasion without foreign body, unspecified eye, initial encounter (principal); Y04.0XXA Assault by unarmed brawl or fight, initial encounter; Y92.89 Other specified places as the place of occurrence of the external cause; I10 Essential (primary) hypertension

== ENCOUNTER 2018-12-24 01:27 | Emergency (ER) | payer MEDICAID ==
[2018-12-24 01:28] VITALS: BMI 27.4
[2018-12-24 01:52] VITALS: O2SAT 100
[2018-12-24] MEDS ORDERED: Sodium Chloride 0.9% 1,000 ML IV STA (02:03)
--- NOTE | 2018-12-24 02:08 | ED PDOC ---
HPI: Psych/Substance Abuse Time Seen by Provider: 12/24/18 01:36 Chief Complaint (Nursing): Substance Abuse Chief Complaint (Provider): Substance Abuse ED Caveat: Intoxicated History Per: EMS, Other ([place] Police Depratment) History/Exam Limitations: intoxication Modifying Factor(s): Alcohol Additional Complaint(s): 58 years old male with a history of schizophrenia and depression brought in by EMS under police arrest for medical and psychiatric cl earance after neighbors reported smelling gas coming out from his apartment. Patient was found under influence and admits to using alcohol but denies using drugs. Full HPI and ROS are limited due to patient's intoxicated state. PMD: None provided Past Medical History Reviewed: Historical Data, Nursing Documentation, Vital Signs Vital Signs: Last Vital Signs Temp 98.2 F 12/24/18 01:45 Pulse 108 H 12/24/18 01:45 Resp 18 12/24/18 01:45 BP 136/79 12/24/18 01:45 Pulse Ox 100 12/24/18 01:45 - Medical History PMH: Anxiety, Arthritis, Back Problems, Depression, Diabetes, Hypercholesterolemia, Schizophrenia Denies: Hepatitis, HIV, HTN, Chronic Kidney Disease, Seizures, Sexually Transmitted Disease - Surgical History Surgical History: Back Surgery - Family History Family History: States: Unknown Family Hx, Diabetes - Social History Current smoker - smoking cessation education provided: No (Unknown) Alcohol: Social Drugs: Denies - Immunization History Hx Tetanus Toxoid Vaccination: No Hx Influenza Vaccination: No Hx Pneumococcal Vaccination: No - Home Medications Home Medications: Ambulatory Orders Medication Instructions Recorded Alprazolam [Xanax] 2 mg PO Q6 PRN 02/25/18 Quetiapine Fumarate [Quetiapine 400 mg PO HS 06/16/18 Fumarate ER] Gemfibrozil [Lopid] 600 mg PO Q12 #60 tab 06/19/18 MetFORMIN [glucoPHAGE] 1,000 mg PO BID #60 tab 06/19/18 Sulfamethoxazole/Trimethoprim 1 tab PO Q12 #14 tab 08/17/18 [Bactrim DS 800 mg-160 mg] oxyCODONE/Acetaminophen [Percocet 1 tab PO Q8 PRN #20 tab 08/17/18 5/325 mg Tab] Tobramycin 0.3% [Tobrex 0.3% Ophth 1 drop OD Q6 #1 bottle 10/04/18 [facility]] - Allergies Allergies/Adverse Reactions: Allergies Allergy/AdvReac Type Severity Reaction Status Date / Time No Known Allergies Allergy Verified 08/15/18 15:10 Review of Systems Review Of Systems: ROS cannot be obtained secondary to pt's inabilty to answer questions. Physical Exam - Reviewed Nursing Documentation Reviewed: Yes Vital Signs Reviewed: Yes - Physical Exam Appears: Positive for: Well, No Acute Distress Head Exam: Positive for: ATRAUMATIC, NORMOCEPHALIC Skin: Positive for: Normal Color, Warm, Dry Eye Exam: Positive for: Normal appearance, EOMI, PERRL Neck: Positive for: Normal, Painless ROM, Supple Cardiovascular/Chest: Positive for: Regular Rate, Rhythm. Negative for: Murmur Respiratory: Positive for: Normal Breath Sounds. Negative for: Wheezing Gastrointestinal/Abdominal: Positive for: Normal Exam, Soft. Negative for: Tenderness Back: Positive for: Normal Inspection. Negative for: L CVA Tenderness, R CVA Tenderness Extremity: Positive for: Normal ROM. Negative for: Pedal Edema, Swelling Neurologic/Psych: Positive for: Other (Speech slurred. Somnolent but arousable) - Laboratory Results Result Diagrams: 12/24/18 02:12 12/24/18 02:12 - ECG O2 Sat by Pulse Oximetry: 100 (RA) Pulse Ox Interpretation: Normal Medical Decision Making Medical Decision Making: Time: 153 Initial Impression: 58 y/o male brought in for medical and psychiatric clearance. Patient is under influence of alcohol/drug. Initial Plan: --EKG --Alcohol Serum --CMP --Drug screen --Crisis evaluation --Urine dipstick --CBC --Glucose --Zofran 4 mg IV --Urinalysis 0513 --Labs reviewed and significant for positive cocaine on drug screen and elevated blood alcohol level --Patient evaluated by crisis and cleared for discharge --Clinical impression: Substance abuse Scribe Attestation: Documented by Brigida Wilcox, acting as a scribe Cristian Koroma MD. Provider Scribe Attestation: All medical record entries made by the Scribe were at my direction and personally dictated by me. I have reviewed the chart and agree that the record accurately reflects my personal performance of the history, physical exam, me dical decision making, and the department course for this patient. I have also personally directed, reviewed, and agree with the discharge instructions and disposition. Disposition - Clinical Impression Clinical Impression: Polysubstance abuse - Patient ED Disposition Is Patient to be Admitted: No - Disposition Disposition: Routine/Home Disposition Time: 05:13 Condition: STABLE Additional Instructions: Patient is medically and psychiatrically stable for incarceraton Instructions: Polysubstance Abuse Forms: [employer] (Maori)
[2018-12-24 02:41] LABS: BASO # 0.1 K/uL (0.0-0.2); BASO % 0.6 % (0.0-2.0); EOS # 0.6 K/uL (0.0-0.7); EOS % 5.1 % (0.0-4.0); HEMOGLOBIN 11.5 g/dL (12.0-18.0); LYMPH # 3.3 K/uL (1.0-4.3); LYMPH % 26.5 % (20.0-40.0); MEAN CELL VOLUME 85.4 fl (80.0-94.0); MEAN CORPUSCULAR HEMOGLOBIN 27.3 pg (27.0-31.0); MEAN PLATELET VOLUME 7.6 fl (7.2-11.7); MONO # 0.6 K/uL (0.0-0.8); MONO % 5.1 % (0.0-10.0); NEUT # 7.8 K/uL (1.8-7.0); NEUT % 62.7 % (50.0-75.0); RBC 4.2 Mil/uL (4.40-5.90); RED CELL DISTRIBUTION WIDTH 14.6 % (11.5-14.5); WHITE BLOOD COUNT 12.5 K/uL (4.8-10.8)
[2018-12-24 02:44] LABS: URINE BILIRUBIN NEGATIVE (NEGATIVE); URINE BLOOD NEGATIVE (NEGATIVE); URINE CLARITY SLIGHTY-CLOUDY (Clear); URINE COLOR YELLOW (YELLOW); URINE GLUCOSE (UA) NEG (NEGATIVE); URINE LEUKOCYTE ESTERASE NEG Leu/uL (Negative); URINE PROTEIN NEGATIVE (NEGATIVE); URINE UROBILINOGEN 0.2-1.0 mg/dL (0.2-1.0)
[2018-12-24 02:50] LABS: ALB/GLOB RATIO 1.2 (1.0-2.1); ALBUMIN 4.1 g/dL (3.5-5.0); ALT/SGPT 27 U/L (21-72); AST/SGOT 36 U/L (17-59); BLOOD UREA NITROGEN 14 mg/dl (9-20); CALCIUM 9.5 mg/dL (8.4-10.2); GFR NON-AFRICAN AMERICAN > 60
[2018-12-24 03:13] LABS: BARBITURATES, UR NEGATIVE (NEGATIVE); BENZODIAZEPINES, UR NEGATIVE (NEGATIVE); OPIATES, UR NEGATIVE (NEGATIVE); PHENCYCLIDINE, UR NEGATIVE (NEGATIVE)
[2018-12-24 06:00] VITALS: BP 146/90; PULSE 91; RESP 14; TEMP 98.5
--- NOTE | 2018-12-24 13:50 | CARD ---
APPROVED REPORT Date of service: 12/24/2018 EKG Measurement Heart [id number] <Conclusion> Normal sinus rhythm Nonspecific T wave abnormality Abnormal ECG
== END 2018-12-24 05:11 | disposition home or self-care (01) ==
LOC: H.ER 01:27
DX: F19.10 Other psychoactive substance abuse, uncomplicated (principal)
CPT/HCPCS: 80053; 80320; 80324; 80345; 80346; 80349; 80353; 80358; 80361; 81003; 82948; 83992; 85025; 93005; 96360; 99284; J2405; J7030